=== PATIENT | female | born 1960 | race Caucasian/White ===

== ENCOUNTER 2017-03-12 15:57 | Inpatient (IN) | payer OTHER ==
[~2017-03-12] VITALS: Ht 175.3 cm; Wt 90.7 kg
[~2017-03-12 15:57] MED LIST: ACET-2869 PO; ASPI81CT89 PO; BEN10 PO; BENA10TA16 PO; CLON2TAB PO; DOCU-264 PO; FAMO20TA47 PO; FURO-570 PO; LACT1.4C PO; LEVO500T22 PO; MULT1CAP28 PO; PANT40EC28 PO; POTA8TER12 PO; SPIR25TA PO; SYN.1 PO
[2017-03-12 16:08] VITALS: BP 124/71
[2017-03-12] MEDS ORDERED: IPRATROPIUM 0.02% 0.5 MG/2.5 ML NEBU INH ONE (17:25)
[2017-03-12] MEDS ORDERED: ALBUTEROL 0.083% 2.5 MG/3 ML NEBU INH ONE (17:25)
[2017-03-12] MEDS ORDERED: MAG SULF 2000 MG/WATER PREMIX 50 ML IV ONE (17:25)
[2017-03-12] MEDS ORDERED: methylPREDNISolone SS 125 MG/2 ML VIAL IVP ONE (17:25)
--- NOTE | 2017-03-12 17:34 | NUR ---
Patient ambualted to bed 8. RN evaluating patient at bedside.
--- NOTE | 2017-03-12 17:44 | NUR ---
Breathing treatment administered by respiratory therapist at bedside.
--- NOTE | 2017-03-12 17:48 | NUR ---
X-Ray at bedside.
--- NOTE | 2017-03-12 17:54 | NUR ---
Patient being evaluated by Dr. Martinez at bedside.
[2017-03-12] MEDS ORDERED: FUROSEMIDE 40 MG/4 ML VIAL IVP ONE (18:00)
--- NOTE | 2017-03-12 18:05 | NUR ---
56F BIB FAMILY C/O DIFFICULTY BREATHING WITH COUGHING & WHEEZING X 6 DAYS WITH WHITE PHELEM AND FEVER. RR EVEN/UNLABORED, EQUAL RISE/FALL OF CHEST NOTED AT THIS TIME. LS DIMINISHED THOUGH LS. PATIENT ALSO C/O INTERMITTENT SUBSTERNAL CP AND UPPER BL BACK PAIN; PATIENT STATES THAT COUGHING MAKES THE PAIN OCCUR; +1 NONPITTING EDEMA TO BL ANKLES; PATIENT STATES SHE FEELS "HEAVIER"; DENIES N/V/D; SKIN IS PINK/WARM/DRY; AAOX4 WITH EVEN AND STEADY GAIT; VSS; PATIENT POSITIONED FOR COMFORT; HOB ELEVATED; BEDRAILS UP X2; BED DOWN. ER MD MADE AWARE OF PT STATUS.
--- NOTE | 2017-03-12 18:13 | NUR ---
EKG completed by EMT at bedside.
--- NOTE | 2017-03-12 18:14 | NUR ---
Dr. Martinez evaluating patient at bedside.
[2017-03-12] MEDS ORDERED: MORPHINE SULFATE 4 MG/ML SYR IVP ONE (18:25)
[2017-03-12] MEDS ORDERED: ASPIRIN 325 MG TAB PO ONE (18:25)
[2017-03-12 18:40] LABS: BASOPHILS # (AUTO) 0.1 K/uL (0.00-0.22); BASOPHILS % (AUTO) 0.8 % (0.0-2.0); EOSINOPHILS # (AUTO) 0.1 K/uL (0-0.4); EOSINOPHILS % (AUTO) 0.7 % (0.0-4.0); HEMATOCRIT 40.3 % (36-48); HEMOGLOBIN 12.9 g/dL (12.0-16.0); LYMPHOCYTES # (AUTO) 1.4 K/uL (2.5-16.5); LYMPHOCYTES % (AUTO) 16.1 % (20.5-51.1); MEAN CORPUSCULAR HEMOGLOBIN 27 pg (27-31); MEAN CORPUSCULAR HGB CONC 32 g/dL (33-37); MEAN CORPUSCULAR VOLUME 85 fL (80-94); MONOCYTES # (AUTO) 0.8 K/uL (0.8-1.0); MONOCYTES % (AUTO) 9.1 % (1.7-9.3); NEUTROPHILS # (AUTO) 6.3 K/uL (1.8-7.7); NEUTROPHILS % (AUTO) 73.3 % (42.2-75.2); PLATELET COUNT (AUTO) 243 K/uL (140-450); RED BLOOD CELL COUNT(AUTO) 4.73 MIL/uL (4.20-5.40); RED CELL DISTRIBUTION WIDTH 12.7 % (11.6-13.7); WHITE BLOOD COUNT (AUTO) 8.7 K/uL (4.8-10.8)
[2017-03-12 18:49] LABS: PARTIAL THROMBOPLASTIN TIME 28.5 secs (22-35.6); PROTHROMBIN TIME 10.5 secs (10.8-13.4)
[2017-03-12] MEDS ORDERED: SYN.1 PO (18:52)
[2017-03-12] MEDS ORDERED: DEXL60EC5 PO (18:52)
[2017-03-12] MEDS ORDERED: LINA145C PO (18:52)
[2017-03-12] MEDS ORDERED: ASPI81CT89 PO (18:52)
[2017-03-12] MEDS ORDERED: MULT1SGL58 PO (18:52)
[2017-03-12] MEDS ORDERED: OMEG300C PO (18:52)
[2017-03-12] MEDS ORDERED: BEN10 PO (18:52)
[2017-03-12] MEDS ORDERED: AMLO1CAP11 PO (18:52)
[2017-03-12] MEDS ORDERED: SPIR25TA PO (18:52)
[2017-03-12] MEDS ORDERED: CLON2TAB PO (18:52)
[2017-03-12 18:54] LABS: ANION GAP 11.5 (8-16); CARBON DIOXIDE 30.8 mmol/L (21-32); CREATININE 0.9 mg/dL (0.6-1.3); POTASSIUM 4.3 mmol/L (3.5-5.1)
[2017-03-12 19:00] LABS: ALBUMIN 3.9 g/dL (3.4-5.0); TOTAL BILIRUBIN 0.5 mg/dL (0.0-1.0); TOTAL PROTEIN, SERUM 7.9 g/dL (6.4-8.2)
--- NOTE | 2017-03-12 19:06 | NUR ---
Pt report given to Mansi Swain. Transfer of care at this time.
--- NOTE | 2017-03-12 19:13 | NUR ---
Pt w/c assisted to bathroom.
--- NOTE | 2017-03-12 19:19 | NUR ---
Pt returned to bed 8. Placed back onto cardiac cath lab radiology technologist, pulse oximetry and blood pressure monitoring. VSS.
--- NOTE | 2017-03-12 19:28 | NUR ---
Pt requesting pain medication. Dr. Montelongo made aware.
--- NOTE | 2017-03-12 19:30 | NUR ---
Dr. Montelongo evaluating patient at bedside.
[2017-03-12] MEDS ORDERED: MORPHINE SULFATE 2 MG/ML SYR IVP ONE (19:40)
[2017-03-12] MEDS ORDERED: PIPERACILLIN/TAZOBACTAM 3.375 GM in DEXTROSE 5% 50 ML IV ONE (19:45)
[2017-03-12] MEDS ORDERED: NITROGLYCERIN 0.4 MG TAB SL PRN (20:05)
[2017-03-12] MEDS ORDERED: HYDROcodone/APAP 7.5/325 MG 1 TAB PO PRN (20:05)
[2017-03-12] MEDS ORDERED: PIPERACILLIN/TAZOBACTAM 3.375 GM VIAL IV ONE (20:08)
[2017-03-12] MEDS ORDERED: NACL 0.9% 1,000 ML IV SCH (20:19)
[2017-03-12] MEDS ORDERED: ONDANSETRON 4 MG/2 ML VIAL IVP PRN (20:20)
--- NOTE | 2017-03-12 20:20 | NUR ---
Patient will be admitted to care of Dr. Cruz. Admited to TELE. Will go to room 120-A. Belongings list completed. Report to Aydee BACA.
--- NOTE | 2017-03-12 20:35 | NUR ---
RECEIVED FROM ER PER SHANIQUA AWAKE AND ALERT. ABLE TO VERBALIZE NEEDS WELL IN WELSH. DX. OF CHEST PAIN. COMPLAINTS OF COUGHING HARD , NAUSEA OCCASIONALLY, FEVER AND WHEEZING AT HOME. HX. ASTHMA. PT. CARE PLANS FOR THE NIGHT DISCUSSED WITH HER AND CALL LIGHT USE DISCUSSED WITH HER TOO. NO EDEMA . NO OPEN WOUND AND ABLE TO WALK INDEPENDENTLY PER PT.
[2017-03-12] MEDS ORDERED: DOCUSATE SODIUM 100 MG GELCAP PO SCH ×2 (21:00)
[2017-03-12 21:01] LABS: AMPHETAMINE, URINE NEG. ng/ml (NEG <=1000); BARBITURATE, URINE NEG. ng/ml (NEG <=200); BENZODIAZEPINE, URINE NEG. ng/mL (NEG <=200); CANNABINOID, URINE NEG. ng/mL (NEG <=50); COCAINE, URINE NEG. ng/mL (NEG <=300); OPIATE, URINE NEG. ng/mL (NEG <=2000); PHENCYCLIDINE SCREEN,URINE NEG. ng/mL (NEG <=25)
[2017-03-12 21:10] LABS: CHOL/HDL RATIO 4.4 (1-4.5); FREE T4 (FREE THYROXINE) 1.14 ng/dL (0.76-1.46); MAGNESIUM 2.1 mg/dL (1.8-2.4); PHOSPHORUS 4.1 mg/dL (2.5-4.9)
[2017-03-12 21:24] VITALS: BP 134/89
[2017-03-12] MEDS ORDERED: ZOLPIDEM 5 MG TAB PO PRN (21:30)
[2017-03-12] MEDS ORDERED: SPIRONOLACTONE 25 MG TAB PO PRN (21:40)
[2017-03-12] MEDS ORDERED: clonazePAM 0.5 MG TAB PO SCH (21:50)
--- NOTE | 2017-03-12 22:00 | NUR ---
PT. PROVIDED WITH DINNER /SNACK. WITH GOOD APPETITE. CALL LIGHT WITH IN REACH.
[2017-03-12] MEDS: MORPHINE SULFATE 2 MG/ML SYR IVP PRN (22:05)
[2017-03-12] MEDS: METOPROLOL 25 MG TAB PO SCH (22:06)
[2017-03-12] MEDS: DOCUSATE SODIUM 100 MG GELCAP PO SCH (22:06)
[2017-03-12] MEDS: ATORVASTATIN 20 MG TAB PO SCH (22:06)
[2017-03-12] MEDS: NACL 0.9% 1,000 ML IV SCH (22:11)
[2017-03-12] MEDS ORDERED: ALBUTEROL SULFATE/IPRATROPIU 3 ML SOL IH PRN (22:15)
--- NOTE | 2017-03-12 23:34 | NUR ---
STILL AWAKE AT THIS TIME AND TALKING ON THE PHONE WITH A FAMILY MEMBER. NEW IVF LINE INSERTED TO LEFT WRIST #22 BY CHARGE NURSE RT LAC INSERTED IN ER PER PT IS UNCOMFORTABLE AND PAINFUL. DISCONTINUED WITH TIP INTACT. TOLERATED WELL.
[2017-03-13] MEDS: guaiFENesin DM 200/20 MG-10 ML 10 ML UDC PO PRN ×3 (00:29→21:59)
[2017-03-13 00:43] VITALS: BP 110/92
--- NOTE | 2017-03-13 00:58 | NUR ---
PT. AWAKE AND ASSISTED TO RESTROOM BY TERMITE TECHNICIAN. SETTLED BACK IN BED AND BILATERAL SEQUENTIALS IN PLACE ORDERED.
--- NOTE | 2017-03-13 01:15 | NUR ---
STILL AWKAE AT THIS TIME. STATED THAT SHE GOT AWAKEN BY THE LAB. TECH. ABLE TO VERBALIZE SIMPLE NEEDS WELL. NO SOB. TELEMETRY MONITORING.
--- NOTE | 2017-03-13 03:19 | NUR ---
SLEEPING. NO RESTLESSNESS. TELEMETRY MONITORING. CALL LIGHT WITH IN REACH.
[2017-03-13 05:14] VITALS: BP 95/60
[2017-03-13] MEDS: LEVOTHYROXINE 0.1 MG TAB PO SCH (05:49)
[2017-03-13 05:58] LABS: BILIRUBIN,URINE NEGATIVE (NEGATIVE); BLOOD, URINE TRACE-I (NEGATIVE); COLOR,URINE YELLOW (YELLOW); LEUKOCYTE ESTERASE ,URINE TRACE (NEGATIVE); NITRITE, URINE NEGATIVE (NEGATIVE); PH,URINE 5.5 (5.0-9.0); PROTEIN,URINE NEGATIVE (NEGATIVE); UGLUCOSE NEGATIVE (NEGATIVE); UROBILINOGEN,URINE 0.2 EU/dL (0.2 - 1)
[2017-03-13 06:27] LABS: RBC,URINE 0-5 (RARE) /HPF (0-5); WBC,URINE 0-5 (RARE) /HPF (0-5)
[2017-03-13 06:35] LABS: SQUAMOUS EPITHELIAL CELL,UR 4-10 (MOD) /LPF (0-3 (FEW))
[2017-03-13 06:36] LABS: APPEARANCE,URINE SLIGHTLY HAZY (CLEAR); BACTERIA,URINE 0-2 (RARE) /HPF (None Seen)
--- NOTE | 2017-03-13 07:11 | NUR ---
ENDORSED TO THE NEXT RN FOR CONTINUITY OF CARE. AWAKE , ALERT AND ROM X 4. TELEMETRY MONITORING. MEDICATED WITH MORPHINE IVP X 1 THIS SHIFT. ABLE TO VERBALIZE NEEDS WELL.
--- NOTE | 2017-03-13 07:30 | NUR ---
RECEIVED REPORT FROM PM RN. ASSUMED CARE OF THE PT. PT AWAKE, ALERT AND ORIENTED X4. BREATHING IS CLEAR AND UNLABORED. NO SIGNS OF RESTLESSNESS, SOB, AND DISTRESS. IV IS PATENT. SKIN IS INTACT. PT STATED A PAIN OF 8/10 ON HER BACK AND WHEN SHE COUGHS. WILL MEDICATE. PT DENIES ANY OTHER DISCOMFORT. SAFETY MEASURES IN PLACE. BED ON LOW POSITION. CALL LIGHT WITHIN REACH. WILL CONTINUE TO MONITOR.
[2017-03-13 08:00] VITALS: BP 108/72
--- NOTE | 2017-03-13 08:09 | NUR ---
PATIENT HAS BEEN SCREENED AND CATEGORIZED MODERATE NUTRITION RISK. PATIENT WILL BE SEEN WITHIN 3-5 DAYS OF ADMISSION. 03/15/17-03/17/[address]
[2017-03-13] MEDS: BENAZEPRIL 20 MG TAB PO SCH (08:31)
[2017-03-13] MEDS: DICYCLOMINE 10 MG CAP PO SCH ×2 (08:31→20:17)
[2017-03-13] MEDS: DOCUSATE SODIUM 100 MG GELCAP PO SCH ×2 (08:33→20:13)
[2017-03-13] MEDS: PANTOPRAZOLE 40 MG INJ VIAL IVP SCH (08:34)
[2017-03-13] MEDS: MULTIVITAMIN 1 TAB PO SCH (08:34)
[2017-03-13] MEDS: ASPIRIN 81 MG TAB.CHEW PO SCH (08:34)
[2017-03-13] MEDS ORDERED: LISINOPRIL 5 MG TAB PO SCH (09:00)
[2017-03-13] MEDS ORDERED: clonazePAM 0.5 MG TAB PO SCH (09:00)
--- NOTE | 2017-03-13 09:02 | NUR ---
GIVEN DUE MEDS. PT TOLERATED IT WELL. NO SIGNS OF DISTRESS, SOB, OR RESTLESSNESS. SAFETY MEASURES IN PLACE. WILL CONTINUE TO MONITOR.
--- NOTE | 2017-03-13 09:40 | NUR ---
PT AMBULATED TO THE RESTROOM. PT DENIES ANY SOB, LIGHTHEADEDNESS, OR DISTRESS. ASSISTED PT BACK TO HER BED. PT DENIES ANY DISCOMFORT. SAFETY MEASURES IN PLACE. CALL LIGHT WITHIN REACH. BED ON LOW POSITION. WILL CONTINUE TO MONITOR.
[2017-03-13] MEDS: MORPHINE SULFATE 2 MG/ML SYR IVP PRN ×2 (09:49→17:24)
--- NOTE | 2017-03-13 09:49 | NUR ---
GIVEN PAIN MEDICATION. PT TOLERATED IT WELL. NO SIGNS OF DISTRESS, SOB, OR RESTLESSNESS. SAFETY MEASURES IN PLACE. WILL CONTINUE OT MONITOR.
[2017-03-13] MEDS: METOPROLOL 25 MG TAB PO SCH ×2 (10:29→20:16)
[2017-03-13] MEDS: amLODIPine 5 MG TAB PO SCH (10:29)
[2017-03-13] MEDS: ALBUTEROL SULFATE/IPRATROPIU 3 ML SOL IH SCH ×2 (11:50→19:19)
[2017-03-13 12:00] VITALS: BP 99/70
[2017-03-13] MEDS: ONDANSETRON 4 MG/2 ML VIAL IVP PRN (13:12)
--- NOTE | 2017-03-13 13:12 | NUR ---
PT C/O NAUSEA. PRN MEDICATION GIVEN. PT TOLERATED IT WELL. PT HAS NO SIGNS OF DISTRESS, RESTLESSNESS, OR SOB. SAFETY MEASURES IN PLACE. WILL CONTINUE TO MONITOR.
[2017-03-13 16:00] VITALS: BP 110/68
[2017-03-13] MEDS: NACL 0.9% 1,000 ML IV SCH (16:01)
--- NOTE | 2017-03-13 17:06 | NUR ---
PT C/O BURNING PAIN AT IV SITE ON LEFT WRIST, SITE APPEARS WNL, NO SWELLING OR LEAKING NOTED, NEW IV STARTED PER PT'S REQUEST TO RIGHT FA 20g, PT SALO WELL, IVF RESUMED, PT SITTING UP CONVERSING WITH FAMILY WITH A SMILE, RESP EVEN UNLABORED IN NAD, PT DENIES ANY IMMEDIATE NEEDS, CALL TEJADA WITHIN REACH, SIDE RAILS UP, WILL CONTINUE TO MONITOR.
--- NOTE | 2017-03-13 18:00 | NUR ---
PT IN BED SITTING COMFORTABLY. PT DENIES PAIN OR DISCOMFORT. SAFETY MEASURES IN PLACED. WILL CONTINUE TO MONITOR.
--- NOTE | 2017-03-13 19:19 | NUR ---
REPORT GIVEN TO PM NURSE RAMESH. PT IN STABLE CONDITION.
--- NOTE | 2017-03-13 19:20 | NUR ---
RECEIVED REPORT FROM DAY RN FOR CONTINUITY OF CARE. PATIENT IS ALERT AND ORIENTED X4, DISCUSSED PLAN OF CARE WITH PATIENT. SHIFT ASSESSMENT COMPLETED, VITAL SIGNS STABLE. NO RESPIRATORY DISTRESS NOTED ON 2L NC, PATIENT HAS EXPIRATORY WHEEZING NOTED. PATIENT DENIES PAIN. IV TO RT FA PATENT AND INFUSING FLUIDS WELL. SAFETY PRECAUTIONS ENFORCED, CALL LIGHT WITHIN REACH. WILL CONTINUE TO MONITOR.
[2017-03-13 20:00] VITALS: BP 98/62
[2017-03-13] MEDS: ATORVASTATIN 20 MG TAB PO SCH (20:14)
--- NOTE | 2017-03-13 20:17 | NUR ---
DUE MEDICATIONS ADMINISTERED, TOLERATED WELL AND VERBALIZED UNDERSTANDING OF USE. PATIENT RESTING IN BED NO DISTRESS OR DISCOMFORT NOTED. CALL LIGHT WITHIN REACH.
[2017-03-13] MEDS: clonazePAM 0.5 MG TAB PO PRN (22:06)
--- NOTE | 2017-03-13 22:06 | NUR ---
PATIENT C/O ANXIETY, VITAL SIGNS STABLE. MEDICATED PER MD ORDER. CALL LIGHT WITHIN REACH, WILL CONTINUE TO MONITOR.
--- NOTE | 2017-03-13 23:50 | NUR ---
VITAL SIGNS STABLE, RT LISSY IN WITH PATIENT FOR BREATHING TX, RECOMMENDED SOLUMEDROL TREATMENT. DR. JACKSON IN TO SEE PATIENT.
[2017-03-14] VITALS: BP 108/71
[2017-03-14] MEDS ORDERED: LEVOFLOXACIN 750 MG/D5W PREMIX 150 ML IV SCH (00:20)
--- NOTE | 2017-03-14 01:03 | NUR ---
0010 SPUTUM SAMPLE UPTAINED AND TAKEN TO THE LAB.
--- NOTE | 2017-03-14 01:05 | NUR ---
0005 INSTRUCTED IS TO PT. PT DID 10 BREATHS AT 1500CC
[2017-03-14] MEDS: MORPHINE SULFATE 2 MG/ML SYR IVP PRN ×3 (01:27→18:04)
--- NOTE | 2017-03-14 01:27 | NUR ---
PATIENT C/O BACK PAIN, MEDICATED PER MD ORDER. VITAL SIGNS STABLE. CALL LIGHT WITHIN REACH, WILL CONTINUE TO MONITOR.
[2017-03-14 04:00] VITALS: BP 102/65
--- NOTE | 2017-03-14 04:11 | NUR ---
VITAL SIGNS STABLE, PATIENT RESTING IN BED NO DISTRESS OR DISCOMFORT NOTED. CALL LIGHT WITHIN REACH.
[2017-03-14] MEDS ORDERED: CLINDAMYCIN 600 MG/4 ML VIAL ONE (04:37)
[2017-03-14] MEDS ORDERED: CLINDAMYCIN 600 MG in DEXTROSE 5% 50 ML IV SCH (05:00)
[2017-03-14 05:40] LABS: BASOPHILS # (AUTO) 0.2 K/uL (0.00-0.22); BASOPHILS % (AUTO) 1.6 % (0.0-2.0); EOSINOPHILS # (AUTO) 0.1 K/uL (0-0.4); EOSINOPHILS % (AUTO) 1.4 % (0.0-4.0); HEMATOCRIT 34.6 % (36-48); HEMOGLOBIN 11.5 g/dL (12.0-16.0); LYMPHOCYTES # (AUTO) 1.6 K/uL (2.5-16.5); LYMPHOCYTES % (AUTO) 16.3 % (20.5-51.1); MEAN CORPUSCULAR HEMOGLOBIN 28 pg (27-31); MEAN CORPUSCULAR HGB CONC 33 g/dL (33-37); MEAN CORPUSCULAR VOLUME 85 fL (80-94); MONOCYTES # (AUTO) 0.8 K/uL (0.8-1.0); MONOCYTES % (AUTO) 8.3 % (1.7-9.3); NEUTROPHILS # (AUTO) 6.9 K/uL (1.8-7.7); NEUTROPHILS % (AUTO) 72.4 % (42.2-75.2); PLATELET COUNT (AUTO) 276 K/uL (140-450); RED BLOOD CELL COUNT(AUTO) 4.05 MIL/uL (4.20-5.40); RED CELL DISTRIBUTION WIDTH 12.7 % (11.6-13.7); WHITE BLOOD COUNT (AUTO) 9.6 K/uL (4.8-10.8)
[2017-03-14] MEDS: LEVOTHYROXINE 0.1 MG TAB PO SCH (06:14)
--- NOTE | 2017-03-14 06:20 | NUR ---
DR. HALLMAN IN TO SEE PATIENT.
[2017-03-14 06:31] LABS: ANION GAP 9.5 (8-16); CALCIUM 8.5 mg/dL (8.5-10.1); CARBON DIOXIDE 31.5 mmol/L (21-32); CREATININE 0.9 mg/dL (0.6-1.3)
[2017-03-14 06:37] LABS: MAGNESIUM 2.1 mg/dL (1.8-2.4); PHOSPHORUS 4.4 mg/dL (2.5-4.9)
[2017-03-14] MEDS: ALBUTEROL SULFATE/IPRATROPIU 3 ML SOL IH SCH ×3 (06:39→18:59)
--- NOTE | 2017-03-14 07:16 | NUR ---
ENDORSED PATIENT TO DAY RN AT BEDSIDE FOR CONTINUITY OF CARE, PATIENT IS IN STABLE CONDITION.
--- NOTE | 2017-03-14 07:30 | NUR ---
RECEIVED REPORT FROM PM RN FOR CONTINUITY OF CARE. PT AWAKE, ALERT AND ORIENTED X4. NO SIGNS OF RESTLESSNESS, SOB, AND DISTRESS. VITAL SIGNS ARE STABLE. IV ON THE R FA IS PATENT. SKIN IS INTACT. PT STATED A PAIN OF 7/10, WILL MEDICATE. PLAN OF CARE DISCUSSED WITH THE PT, PT VERBALIZED UNDERSTANDING. PT DENIES ANY OTHER DISCOMFORT. SAFETY MEASURES IN PLACE. BED ON LOW POSITION. CALL LIGHT WITHIN REACH. WILL CONTINUE TO MONITOR.
[2017-03-14 08:00] VITALS: BP 109/76
[2017-03-14] MEDS: PANTOPRAZOLE 40 MG INJ VIAL IVP SCH (08:31)
[2017-03-14] MEDS: ASPIRIN 81 MG TAB.CHEW PO SCH (08:31)
[2017-03-14] MEDS: MULTIVITAMIN 1 TAB PO SCH (08:32)
[2017-03-14] MEDS: DOCUSATE SODIUM 100 MG GELCAP PO SCH ×2 (08:33→21:51)
[2017-03-14] MEDS: DICYCLOMINE 10 MG CAP PO SCH ×2 (08:33→21:51)
[2017-03-14] MEDS: ONDANSETRON 4 MG/2 ML VIAL IVP PRN (08:36)
[2017-03-14] MEDS ORDERED: AZITHROMYCIN 250 MG TAB PO SCH (09:00)
[2017-03-14] MEDS: METOPROLOL 25 MG TAB PO SCH ×2 (09:00→21:00)
[2017-03-14] MEDS: amLODIPine 5 MG TAB PO SCH (09:00)
[2017-03-14] MEDS: BENAZEPRIL 20 MG TAB PO SCH (09:00)
--- NOTE | 2017-03-14 10:30 | NUR ---
PT IS SLEEPING. NO SIGN OF DISTRESS, SOB, OR RESTLESSNESS. VS STABLE. SAFETY MEASURES IN PLACED. WILL CONTINUE TO MONITOR.
[2017-03-14 12:00] VITALS: BP 91/60
[2017-03-14] MEDS ORDERED: methylPREDNISolone SS 125 MG/2 ML VIAL IVP SCH (12:00)
[2017-03-14] MEDS: NACL 0.9% 1,000 ML IV SCH (12:01)
--- NOTE | 2017-03-14 12:52 | NUR ---
WAS GOING TO GIVE PT HER BREATHING TX BUT SHE REFUSED SHE JUST GOT HER LUNCH AND NO SIGNS OF DISTRESS WERE NOTED AT THIS TIME, PT WILL CALL WHEN SHE NEEDS ONE
[2017-03-14] MEDS: clonazePAM 0.5 MG TAB PO PRN ×2 (12:59→22:08)
--- NOTE | 2017-03-14 13:00 | NUR ---
PT C/O ANXIETY. PT GIVEN CLONAZEPAM PER MD ORDER. VS ARE STABLE, BP IS 106/62. PT TOLERATED IT WELL. PT DENIES ANY DISCOMFORT. SAFETY MEASURES IN PLACED. WILL CONTINUE TO MONITOR.
[2017-03-14 16:00] VITALS: BP 100/62
--- NOTE | 2017-03-14 16:04 | NUR ---
DR MAGDALENO AND PT FAMILY MEMBERS AT BEDSIDE.
[2017-03-14] MEDS: guaiFENesin DM 200/20 MG-10 ML 10 ML UDC PO PRN (16:09)
--- NOTE | 2017-03-14 16:09 | NUR ---
PT C/O PERSISTENT COUGH. ADMINISTER PRN MEDICATIONS PER MD ORDER. VS STABLE. PT TOLERATED IT WELL. SAFETY MEASURES IN PLACED. FAMILY AT BEDSIDE. CALL LIGHT WITHIN REACH. BEAD ON LOW POSITION. WILL CONTINUE TO MONITOR.
--- NOTE | 2017-03-14 18:04 | NUR ---
PT REPORTED A PAIN OF 7/10 ON HER BACK AND WHEN SHE COUGHS. MEDICATED PT WITH MORPHINE PER MD ORDER. PT TOLERATED IT WELL. VS STABLE. PT DENIES DISCOMFORT. NO SIGNS OF DISTRESS, RESTLESSNESS, OR SOB. SAFETY MEASURES IN PLACED. CALL LIGHT WITHIN REACH. WILL CONTINUE TO MONITOR.
--- NOTE | 2017-03-14 19:30 | NUR ---
RECEIVED REPORT FROM DAY RN AT BEDSIDE, PATIENT IS AAOX4 ON O2 2L VIA NC. NO SOB OR SIGN OF DISTRESS NOTED AT THIS TIME, INTERMITTENT COUGH WITH LITTLE TO NO SPUTUM PRODUCTION NOTED. IV TO RIGHT FA PATENT AND INTACT, SKIN INTACT. PATIENT DENIES PAIN AT THIS TIME, DISCUSSED PLAN OF CARE WITH PATIENT, PT VERBALIZED UNDERSTANDING, CALL LIGHT WITHIN REACH. SAFETY MEASURES CHECKED, WILL CONTINUE TO MONITOR PATIENT.
--- NOTE | 2017-03-14 19:31 | NUR ---
REPORT GIVEN TO PM NURSE. PT IN STABLE CONDITION.
[2017-03-14 20:00] VITALS: BP 114/69
[2017-03-14] MEDS ORDERED: IBUPROFEN 400 MG TAB PO PRN (20:50)
--- NOTE | 2017-03-14 20:54 | NUR ---
PT READY FOR CPAP. CALLED RT AND INFORMED THEM. PT SATURATING AT 90 ON 1L NC. PT WITH NO SIGNS OF DISTRESS, BED IN LOW POSITION, CALL LIGHT WITHIN REACH. WILL CONTINUE TO MONITOR. Addendum: 03/14/17 at 2108 by Chrissy Donohue RN WRONG PATIENT. VOID NOTE
--- NOTE | 2017-03-14 21:45 | NUR ---
PATIENT STATING PAIN IN LOWER BACK, ORDERED MOTRIN, PATIENT STATED MOTRIN DOES NOT WORK FOR HER AND NORCO MAKES HER CONSTIPATED, OFFERED PATIENT TO GET HEATING PAD, PT REFUSED, OFFERED PT TO SPEAK TO MD TO SEE WHAT HE COULD DO FOR HER. MD JACKSON PAGED AND SPOKE TO PATIENT AT THE BEDSIDE. MD TO ORDER TORADOL FOR PAIN, WILL F/U WITH ORDERS.
[2017-03-14] MEDS: methylPREDNISolone SS 125 MG/2 ML VIAL IVP SCH (21:50)
[2017-03-14] MEDS: ATORVASTATIN 20 MG TAB PO SCH (21:55)
[2017-03-14] MEDS ORDERED: KETOROLAC 15 MG/ML VIAL IVP PRN (21:55)
--- NOTE | 2017-03-14 22:00 | NUR ---
PM MEDS GIVEN. PT REFUSED LOPRESSOR. PT TOLERATED MEDS WELL, PT STABLE WITHOUT ANY SIGNS OF DISTRESS. BED IN LOW POSITION, CALL LIGHT WITHIN REACH. WILL CONTINUE TO MONITOR.
[2017-03-15] VITALS: BP 117/79
--- NOTE | 2017-03-15 | NUR ---
VITAL SIGNS STABLE, NO SOB OR SIGN OF DISTRESS, CALL LIGHT WITHIN REACH. WILL CONTINUE TO MONITOR.
[2017-03-15] MEDS: MORPHINE SULFATE 2 MG/ML SYR IVP PRN ×3 (00:11→14:56)
--- NOTE | 2017-03-15 02:30 | NUR ---
PT SLEEPING, NO SOB OR SIGN OF DISTRESS AT THIS TIME, CALL LIGHT WITHIN REACH. WILL CONTINUE TO MONITOR
[2017-03-15 04:00] VITALS: BP 106/70
--- NOTE | 2017-03-15 04:00 | NUR ---
VITAL SIGNS STABLE, NO SOB OR SIGN OF DISTRESS, CALL LIGHT WITHIN REACH. WILL CONTINUE TO MONITOR
[2017-03-15] MEDS: methylPREDNISolone SS 125 MG/2 ML VIAL IVP SCH ×2 (04:26→12:08)
[2017-03-15 06:16] LABS: BASOPHILS % (AUTO) 0.4 % (0.0-2.0); EOSINOPHILS # (AUTO) 0.2 K/uL (0-0.4); EOSINOPHILS % (AUTO) 2.3 % (0.0-4.0); HEMATOCRIT 35.1 % (36-48); HEMOGLOBIN 11.7 g/dL (12.0-16.0); LYMPHOCYTES # (AUTO) 0.8 K/uL (2.5-16.5); LYMPHOCYTES % (AUTO) 8.1 % (20.5-51.1); MEAN CORPUSCULAR HEMOGLOBIN 28 pg (27-31); MEAN CORPUSCULAR HGB CONC 33 g/dL (33-37); MEAN CORPUSCULAR VOLUME 85 fL (80-94); MONOCYTES # (AUTO) 0.2 K/uL (0.8-1.0); NEUTROPHILS # (AUTO) 8.6 K/uL (1.8-7.7); NEUTROPHILS % (AUTO) 87.2 % (42.2-75.2); PLATELET COUNT (AUTO) 333 K/uL (140-450); RED BLOOD CELL COUNT(AUTO) 4.15 MIL/uL (4.20-5.40); RED CELL DISTRIBUTION WIDTH 12.9 % (11.6-13.7); WHITE BLOOD COUNT (AUTO) 9.8 K/uL (4.8-10.8)
[2017-03-15] MEDS: LEVOTHYROXINE 0.1 MG TAB PO SCH (06:18)
[2017-03-15 06:32] LABS: ANION GAP 13.1 (8-16); CALCIUM 8.8 mg/dL (8.5-10.1); CARBON DIOXIDE 28.7 mmol/L (21-32); CREATININE 0.9 mg/dL (0.6-1.3); POTASSIUM 4.8 mmol/L (3.5-5.1)
[2017-03-15] MEDS: ALBUTEROL SULFATE/IPRATROPIU 3 ML SOL IH SCH ×3 (06:34→19:10)
[2017-03-15 06:36] LABS: MAGNESIUM 2.1 mg/dL (1.8-2.4); PHOSPHORUS 4.4 mg/dL (2.5-4.9)
[2017-03-15] MEDS: BUDESONIDE 0.5 MG/2 ML NEBU INH SCH ×2 (06:45→19:30)
--- NOTE | 2017-03-15 07:23 | NUR ---
ENDORSED PATIENT TO DAY RN AT BEDSIDE, PATIENT IN STABLE CONDITION
--- NOTE | 2017-03-15 07:23 | NUR ---
RECEIVED REPORT FROM NIGHT NURSE, PT IS AAOX4, PT IS ON O2 2L VIA NC, IV TO R FA 20G, INFUSING WELL, PATENT AND INTACT, SKIN IS WARM TO TOUCH, DRY AND INTACT, INITIAL ASSESSMENT COMPLETED, REVIEWED PLAN OF CARE WITH PT, ALL SAFETY PRECAUTIONS MET, CALL LIGHT WITHIN REACH, WILL CONTINUE TO MONITOR.
[2017-03-15 08:00] VITALS: BP 117/66
[2017-03-15] MEDS: NACL 0.9% 1,000 ML IV SCH (08:01)
[2017-03-15] MEDS ORDERED: KETOROLAC 30 MG/ML VIAL IVP PRN (08:10)
[2017-03-15] MEDS ORDERED: APAP/BUTAL/CAFF 325/50/40 MG 1 TAB PO PRN (08:20)
[2017-03-15] MEDS: AZITHROMYCIN 250 MG TAB PO SCH ×2 (08:27→20:24)
[2017-03-15] MEDS: DICYCLOMINE 10 MG CAP PO SCH ×2 (08:27→20:23)
[2017-03-15] MEDS: ASPIRIN 81 MG TAB.CHEW PO SCH (08:28)
[2017-03-15] MEDS: DOCUSATE SODIUM 100 MG GELCAP PO SCH ×2 (08:28→20:24)
[2017-03-15] MEDS: PANTOPRAZOLE 40 MG INJ VIAL IVP SCH (08:28)
[2017-03-15] MEDS: MULTIVITAMIN 1 TAB PO SCH (08:28)
[2017-03-15] MEDS ORDERED: BISACODYL 5 MG TABEC PO PRN (08:30)
[2017-03-15] MEDS: ENOXAPARIN 40 MG/0.4 ML SYR SUBQ SCH (08:32)
[2017-03-15] MEDS: ONDANSETRON 4 MG/2 ML VIAL IVP PRN ×2 (08:37→21:08)
--- NOTE | 2017-03-15 08:39 | NUR ---
DUE MEDICATION GIVEN, PT TOLERATED WELL, PT C/O NAUSEA AND GERMAIN 8/10, MEDICATED PER MD ORDERS. ALL NEEDS MET. CALL LIGHT WITHIN REACH. WILL CONTINUE TO MONITOR.
[2017-03-15] MEDS: BENAZEPRIL 20 MG TAB PO SCH (09:00)
[2017-03-15] MEDS: METOPROLOL 25 MG TAB PO SCH ×2 (09:00→21:00)
[2017-03-15] MEDS: amLODIPine 5 MG TAB PO SCH (09:00)
--- NOTE | 2017-03-15 10:57 | NUR ---
ASSESSED PT WITHOUT OXYGEN, PULSE OX 94%, INFORMED PT THAT SHE DOES NOT NEED OXYGEN, PT STATES SHE NEEDS THE OXYGEN FOR COMFORT. INFORMED PACO COLLEGE SCOUTING COORDINATOR AND CHARGE NURSE.
--- NOTE | 2017-03-15 11:00 | NUR ---
PT IS UNHAPPY STATES SHE WANTS TO KEEP OXYGEN ON FOR HER COMFORT, PT O2 SAT 94% ON ROOM AIR, EDUCATED PT ON USAGE, NEEDS AND WEANING OF OXYGEN BEFORE DISCHARGE. PT REFUSES REMOVAL OF OXYGEN AND ASK TO SPEAK TO CHARGE NURSE.
--- NOTE | 2017-03-15 11:25 | NUR ---
ENDORSED PLAN OF CARE TO ASHISH BACA FOR CONTINUITY OF CARE.
--- NOTE | 2017-03-15 11:27 | NUR ---
RECEIVED REPORT FROM LO ROBISON. PT RESTING IN BED. AAOX4. NO S/S OF ACUTE DISTRESS. PT DENIES PAIN. PT STATES SHE HAS A COUGH AND WOULD LIKE COUGH MEDICINE. WILL MEDICATE ORDERED. IV SITE PATENT AND INTACT. PT ON O2 2L NC. CALL LIGHT WITHIN REACH. SAFETY MEASURES ENSURED. WILL CONTINUE TO MONITOR.
[2017-03-15] MEDS: guaiFENesin DM 200/20 MG-10 ML 10 ML UDC PO PRN (11:51)
[2017-03-15 11:54] VITALS: BP 103/67
--- NOTE | 2017-03-15 12:23 | NUR ---
PT STATES SHE IS " STILL WORKED UP" AND DOESN'T WANT THE OXYGEN TO BE TURNED DOWN AT THIS TIME. EXPLAINED TO PT THE NEED TO WEAN HER OFF O2, PT VERBALIZED UNDERSTANDING BUT STILL REFUSED AT THIS TIME. NOTIFIED PT THAT WE WOULD TRY AFTER HER BREATHING TREATMENT. PT IN AGREEMENT.
--- NOTE | 2017-03-15 15:02 | NUR ---
PT STATES PAIN IS 8/10 IN HER BACK. MEDICATED ORDERED. NO S/S OF ACUTE DISTRESS. WILL CONTINUE TO MONITOR.
[2017-03-15 15:58] VITALS: BP 106/60
--- NOTE | 2017-03-15 17:21 | NUR ---
PATIENT WALKING AROUND PUSHING THE IV POLE, NO OXYGEN ATTACHMENT WITH HER DAUGHTER, NO COMPLAINTS WHILE WALKING, NO S/S OF DISTRESS.
[2017-03-15 17:33] LABS: APPEARANCE,URINE CLEAR (CLEAR); BILIRUBIN,URINE NEGATIVE (NEGATIVE); BLOOD, URINE NEGATIVE (NEGATIVE); COLOR,URINE YELLOW (YELLOW); LEUKOCYTE ESTERASE ,URINE NEGATIVE (NEGATIVE); NITRITE, URINE NEGATIVE (NEGATIVE); PROTEIN,URINE NEGATIVE (NEGATIVE); UGLUCOSE NEGATIVE (NEGATIVE); UROBILINOGEN,URINE 0.2 EU/dL (0.2 - 1)
--- NOTE | 2017-03-15 19:10 | NUR ---
PT REFUSED HHN TX, SHE SAID THAT SHE WILL CALL IF NEEDED, BS RE NORMAL, SAT 96%
--- NOTE | 2017-03-15 19:19 | NUR ---
REPORT GIVEN TO NIGHT NURSE, PT REMAINS STABLE
--- NOTE | 2017-03-15 19:30 | NUR ---
RECEIVED REPORT FROM DAY NURSE AT PATIENT BEDSIDE. PT IS AWAKE, A&O X4. PATIENT IS STABLE. VITAL SIGNS WNL. IV ON THE RIGHT FOREARM IS ASYMPTOMATIC. SKIN IS INTACT. PLAN OF CARE DISCUSSED WITH THE PT, PT VERBALIZED UNDERSTANDING. BED IN LOW POSITION, CALL LIGHT WITHIN REACH. WILL CONTINUE TO MONITOR. Addendum: 03/16/17 at 0501 by Chrissy Donohue RN PT IS ON 1L O2 VIA NC.
[2017-03-15 20:00] VITALS: BP 106/71
[2017-03-15] MEDS: ATORVASTATIN 20 MG TAB PO SCH (20:22)
[2017-03-15] MEDS: methylPREDNISolone SS 40 MG/ML VIAL IVP SCH (20:22)
[2017-03-15] MEDS: clonazePAM 0.5 MG TAB PO PRN (20:27)
--- NOTE | 2017-03-15 20:30 | NUR ---
PM MEDS GIVEN TO PATIENT. PATIENT TOLERATED WELL. PATIENT IS STABLE, COMFORTABLE, WITHOUT SIGNS OF DISTRESS. BED IS IN LOW POSITION, CALL LIGHT WITHIN REACH. WILL CONTINUE TO MONITOR.
--- NOTE | 2017-03-15 20:59 | NUR ---
CK PT AGAIN BEFORE SHES GOING TO SLEEP AND SHE REFUSED, SHE WANTS TO SLEEP AND RELAX, AND THE STEROID WILL GET IN THE IV
--- NOTE | 2017-03-15 21:13 | NUR ---
PATIENT C/O NAUSEA, ZOFRAN GIVEN PER MD ORDER. PATIENT TOLERATED WELL. PATIENT STABLE, BED IN LOW POSITION, CALL LIGHT WITHIN REACH. WILL CONTINUE TO MONITOR.
--- NOTE | 2017-03-15 23:30 | NUR ---
PATIENT IS RESTING, STABLE. NO SOB OR SIGNS OF DISTRESS NOTED. BED IN LOW POSITION, CALL LIGHT WITHIN REACH. WILL CONTINUE TO MONITOR.
[2017-03-16] VITALS: BP 111/75
[2017-03-16] MEDS: MORPHINE SULFATE 2 MG/ML SYR IVP PRN ×3 (00:37→15:16)
--- NOTE | 2017-03-16 00:40 | NUR ---
PATIENT STATED SHE HAD 8/10 PAIN ON HER BACK. MEDICATED WITH MORPHINE PER MD ORDER. NO SIGNS OF DISTRESS OR SOB NOTED. WILL CONTINUE TO MONITOR. BED IN LOW POSITION, CALL LIGHT WITHIN REACH.
--- NOTE | 2017-03-16 03:11 | NUR ---
RECEIVED REPORT FROM DAY NURSE AT PATIENT BEDSIDE. PT IS AWAKE, A&O X4. PATIENT IS STABLE. VITAL SIGNS WNL. IV ON THE RIGHT FOREARM IS ASYMPTOMATIC. SKIN IS INTACT. PLAN OF CARE DISCUSSED WITH THE PT, PT VERBALIZED UNDERSTANDING. BED IN LOW POSITION, CALL LIGHT WITHIN REACH. WILL CONTINUE TO MONITOR. Addendum: 03/16/17 at 0316 by Chrissy Donohue RN WRONG TIME. DISREGARD NOTE.
[2017-03-16] MEDS: guaiFENesin DM 200/20 MG-10 ML 10 ML UDC PO PRN ×2 (03:52→12:17)
[2017-03-16 04:00] VITALS: BP 110/62
[2017-03-16] MEDS: NACL 0.9% 1,000 ML IV SCH (04:03)
--- NOTE | 2017-03-16 04:56 | NUR ---
PATIENT RESTING. GENERAL RO[address] PRODUCTION MANAGER ROBYN BLOOD. ADVISED PT TO USE CALL LIGHT IF NEEDING SOMETHING, SHE VERBALIZED UNDERSTANDING. PATIENT IS IN STABLE CONDITION. NO SIGNS OF DISTRESS OR SOB NOTED. BED IN LOW POSITION, CALL LIGHT WITHIN REACH. WILL CONTINUE TO MONITOR.
[2017-03-16] MEDS: methylPREDNISolone SS 40 MG/ML VIAL IVP SCH ×2 (05:32→13:13)
[2017-03-16] MEDS: LEVOTHYROXINE 0.1 MG TAB PO SCH (05:33)
--- NOTE | 2017-03-16 05:36 | NUR ---
GAVE PT MEDS. TOLERATED WELL. PT WENT BACK TO SLEEP. PT IS NOT SOB, THERE ARE NO SIGNS OF DISTRESS. BED IS IN LOW POSITION, CALL LIGHT WITHIN REACH. WILL CONTINUE TO MONITOR.
[2017-03-16 06:06] LABS: BASOPHILS # (AUTO) 0.1 K/uL (0.00-0.22); BASOPHILS % (AUTO) 0.7 % (0.0-2.0); EOSINOPHILS # (AUTO) 0.1 K/uL (0-0.4); EOSINOPHILS % (AUTO) 0.9 % (0.0-4.0); HEMATOCRIT 34.9 % (36-48); HEMOGLOBIN 11.2 g/dL (12.0-16.0); LYMPHOCYTES # (AUTO) 0.8 K/uL (2.5-16.5); LYMPHOCYTES % (AUTO) 5.6 % (20.5-51.1); MEAN CORPUSCULAR HEMOGLOBIN 28 pg (27-31); MEAN CORPUSCULAR HGB CONC 32 g/dL (33-37); MEAN CORPUSCULAR VOLUME 87 fL (80-94); MONOCYTES # (AUTO) 0.7 K/uL (0.8-1.0); NEUTROPHILS # (AUTO) 12.8 K/uL (1.8-7.7); NEUTROPHILS % (AUTO) 87.8 % (42.2-75.2); PLATELET COUNT (AUTO) 338 K/uL (140-450); RED BLOOD CELL COUNT(AUTO) 4.02 MIL/uL (4.20-5.40); RED CELL DISTRIBUTION WIDTH 12.8 % (11.6-13.7)
[2017-03-16 06:30] LABS: ANION GAP 11.6 (8-16); CALCIUM 8.5 mg/dL (8.5-10.1); CARBON DIOXIDE 27.6 mmol/L (21-32); CREATININE 0.9 mg/dL (0.6-1.3); POTASSIUM 4.2 mmol/L (3.5-5.1)
[2017-03-16 06:33] LABS: MAGNESIUM 2.2 mg/dL (1.8-2.4); PHOSPHORUS 3.8 mg/dL (2.5-4.9)
[2017-03-16] MEDS: ALBUTEROL SULFATE/IPRATROPIU 3 ML SOL IH SCH ×2 (07:01→11:40)
[2017-03-16] MEDS: BUDESONIDE 0.5 MG/2 ML NEBU INH SCH (07:02)
--- NOTE | 2017-03-16 07:15 | NUR ---
ASSUMED CONTINUITY OF CARE. NO SIGNS AND SYMPTOMS OF ACUTE DISTRESS NOTED. INITIAL ASSESSMENT DONE. KEEP COMFORTABLE ON BED. EXPLAINED DIAGNOSIS, PLAN OF CARE, PAIN MANAGEMENT TEACHING, BREATHING TREATMENT, USE OF CALL LIGHT/BED/TV/BEDSIDE COMMODE. VERBALIZED UNDERSTANDING. BEDSIDE COMMODE PROVIDED. CALL LIGHT WITHIN REACH.
--- NOTE | 2017-03-16 07:22 | NUR ---
ENDORSED PATIENT TO DAY HAND SPRAYER AT BEDSIDE, PATIENT IN STABLE CONDITION
[2017-03-16 07:27] LABS: WHITE BLOOD COUNT (AUTO) 14.5 K/uL (4.8-10.8)
--- NOTE | 2017-03-16 08:00 | NUR ---
Patient's Plan of Care was discussed and reviewed with WOOL FLEECE SORTER: JANETTE KELLY
[2017-03-16 08:01] VITALS: BP 111/70
[2017-03-16] MEDS: ASPIRIN 81 MG TAB.CHEW PO SCH (08:50)
[2017-03-16] MEDS: MULTIVITAMIN 1 TAB PO SCH (08:50)
[2017-03-16] MEDS: DOCUSATE SODIUM 100 MG GELCAP PO SCH (08:50)
[2017-03-16] MEDS: AZITHROMYCIN 250 MG TAB PO SCH (08:50)
[2017-03-16] MEDS: DICYCLOMINE 10 MG CAP PO SCH (08:50)
[2017-03-16] MEDS: BENAZEPRIL 20 MG TAB PO SCH (08:56)
[2017-03-16] MEDS: ENOXAPARIN 40 MG/0.4 ML SYR SUBQ SCH (08:56)
[2017-03-16] MEDS: amLODIPine 5 MG TAB PO SCH (08:56)
[2017-03-16] MEDS: METOPROLOL 25 MG TAB PO SCH (08:56)
[2017-03-16] MEDS: PANTOPRAZOLE 40 MG INJ VIAL IVP SCH (08:57)
[2017-03-16] MEDS ORDERED: BISA5TAB79 PO (10:27)
[2017-03-16] MEDS ORDERED: ROBDM PO ×2 (10:27→14:48)
[2017-03-16] MEDS ORDERED: PUL.5N INH (10:27)
[2017-03-16] MEDS ORDERED: AZIT250T8 PO (10:27)
[2017-03-16] MEDS ORDERED: IPRA3AMP IH ×2 (10:27→14:55)
--- NOTE | 2017-03-16 10:59 | NUR ---
03/16/17 RD INITIAL ASSESSMENT COMPLETED PLEASE REFER TO NUTRITION ASSESSMENT UNDER CARE ACTIVITY FOR ESTIMATED NUTRITIONAL NEEDS. 1. CONTINUE CARDIAC DIET 2. PROVIDE NUTRITION THERAPY EDUCATION NEEDED 3. RD TO FOLLOW-UP 3-5 DAYS, MODERATE RISK JENN ESPINOZA RD
--- NOTE | 2017-03-16 11:00 | NUR ---
WENT TO BATHROOM WITHOUT ASSISTANCE. TOLERATED WELL. NO SOB, NOTED.
--- NOTE | 2017-03-16 11:37 | NUR ---
RT SAGASTUME CAME FOR PT. BREATHING TREATMENT.
[2017-03-16] MEDS: clonazePAM 0.5 MG TAB PO PRN (11:45)
[2017-03-16 12:00] VITALS: BP 105/59
[2017-03-16] MEDS ORDERED: IBUP-2213 PO (12:07)
--- NOTE | 2017-03-16 13:35 | NUR ---
DR. MAGDALENO CAME, SEEN PT. AND CHECKED PT. CHART. DR. MAGDALENO SPOKE TO DR. HALLMAN.
[2017-03-16] MEDS ORDERED: PRED10TA5 PO (14:17)
[2017-03-16] MEDS ORDERED: ALBU0.0912 IH (14:48)
[2017-03-16] MEDS ORDERED: BUDE10.2 IH (14:50)
[2017-03-16] MEDS ORDERED: BUDE0.25 NEB (14:55)
[2017-03-16 15:05] VITALS: BP 115/75
--- NOTE | 2017-03-16 15:23 | NUR ---
DR. HALLMAN WENT INSIDE PT. ROOM AND SPOKE TO PT. REGARDING D/C.
[2017-03-16 16:00] VITALS: BP 119/72
--- NOTE | 2017-03-16 16:19 | NUR ---
CM NOTE FAXED PRESCRIPTION & CERTIFICATE OF MEDICAL NECESSITY FORM TO [facility] / FAX# [phone], ATTN: AINSLEY #[phone]. PER AINSLEY, ONCE APPROVED & COMPLETED, NEBULIZER WILL BE HOME DELIVERED.
--- NOTE | 2017-03-16 16:20 | NUR ---
EXPLAINED TO PT., PT. , AND PT. DAUGHTER ABOUT MD D/C ORDER, D/C INSTRUCTIONS AND TEACHING, MD FOLLOW-UP, MD PRESCRIPTION LIST EDUCATION, DISEASE MANAGEMENT TEACHING, PAIN MANAGEMENT TEACHING, DIET. VERBALIZED UNDERSTANDING.
--- NOTE | 2017-03-16 16:56 | NUR ---
D/C VIA WHEELCHAIR, ACCOMPANIED BY PT. DAUGHTER. AWAKE, ALERT, AND ORIENTED X4. SPEECH CLEAR. NO C/O PAIN. NO SOB, NOTED. IN STABLE CONDITION. INFORMED CHARGE NURSE MINISTERIO PENNINGTON
[2017-03-16] MEDS ORDERED: guaiFENesin 600 MG TABER PO SCH (21:00)
== END 2017-03-16 16:56 | disposition home or self-care (01) | DRG 205 ==
LOC: MED 15:57 → MTU 20:22
PROVIDERS: ADMIT Family Medicine; ATTEND Family Medicine
DX: M94.0 Chondrocostal junction syndrome [Tietze] (principal); J18.9 Pneumonia, unspecified organism; I42.9 Cardiomyopathy, unspecified; J44.0 Chronic obstructive pulmonary disease with (acute) lower respiratory infection; J44.1 Chronic obstructive pulmonary disease with (acute) exacerbation; I50.9 Heart failure, unspecified; K21.9 Gastro-esophageal reflux disease without esophagitis; I10 Essential (primary) hypertension; J20.9 Acute bronchitis, unspecified; K59.00 Constipation, unspecified; F41.0 Panic disorder [episodic paroxysmal anxiety]; E03.9 Hypothyroidism, unspecified; E66.3 Overweight; Z68.29 Body mass index [BMI] 29.0-29.9, adult; Z88.6 Allergy status to analgesic agent; Z88.8 Allergy status to other drugs, medicaments and biological substances; Z87.891 Personal history of nicotine dependence; Z79.82 Long term (current) use of aspirin; Z82.49 Family history of ischemic heart disease and other diseases of the circulatory system
CPT/HCPCS: 36415; 71010; 80048; 80053; 80305; 81001; 81003; 82150; 82553; 83036; 83690; 83735; 83880; 84100; 84439; 84443; 84484; 85025; 85379; 85610; 85730; 87070; 87081; 87205; 89220; 93005; 94640; 96365; 96366; 96367; 96375; 96376; 99285; C9113; J0696; J1650; J1885; J1940; J1956; J2270; J2405; J2543; J2920; J2930; J3475; J3490; J7030; J7060; J7613; J7620; J7626; J7644; Q0092

== ENCOUNTER 2017-05-01 20:36 | Emergency (ER) | payer OTHER ==
[~2017-05-01] VITALS: Ht 175.3 cm; Wt 88.5 kg
[~2017-05-01 20:36] MED LIST changes: -ACET-2869 PO; +ALDACTONE25 M1 PO; +ALDACTONE25 MG PO; +ALLI60 MG PO; +AMLODIPINE BESY1 CA3 PO; -ASPI81CT89 PO; +ASPIRIN81 M1 PO; +ATOXIMETIN-B1 CAP PO; +AZITHROMYCIN250 MG PO; +BD LACTINEX1.4 MG PO; -BEN10 PO; -BENA10TA16 PO; +BENAZEPRIL10 M1 PO; +BENTYL10 MG PO; +BUDESONIDE0.25 MG/2 NEB; -CLON2TAB PO; +CLONAZEPAM 2 MG; +COLACE100 MG PO; +DEXILANT60 MG PO; -DOCU-264 PO; +DULCOLAX PO; -FAMO20TA47 PO; +FAMOTIDINE 20 MG; +FISH OIL1 POW PO; -FURO-570 PO; +FUROSEMIDE 40 MG; +IPRATROPIUM BROM3 M1 IH; +KLONOPIN2 M1 PO; +KLONOPIN2 MG PO; +KLOR-CON 88 ME1 PO; -LACT1.4C PO; +LASIX40 M1 PO; +LEVAQUIN500 M1 PO; -LEVO500T22 PO; +LINZESS145 MCG PO; +LOTENSIN; +MOTRIN600 MG PO; -MULT1CAP28 PO; +MULTIVITAMIN1 SGL PO; +NORCO 325 MG-51 TAB PO; -PANT40EC28 PO; +PANTOPRAZOLE SO40 MG PO; +PEPCID AC20 MG PO; -POTA8TER12 PO; +PREDNISONE10 MG PO; +PULMICORT0.5 MG/2 M INH; +ROBITUSSIN/DEXT10 ML PO; -SPIR25TA PO; +SYMBICORT 10.10.2 M1 IH; -SYN.1 PO; +SYNTHROID0.1 M1 PO; +SYNTHROID0.1 MG PO; +THE MEDICINE S300 M1 PO; +TYLENOL #3 300/1 TAB PO; +VENTOLIN H0.09 MG/Ac IH; +[UNRECOGNIZED DRUG - OTHER]; +[UNRECOGNIZED DRUG - OTHER] PO
[2017-05-01 20:39] VITALS: BP 147/88
[2017-05-01] MEDS: MORPHINE SULFATE 2 MG/ML SYR IVP ONE ×2 (22:42→23:47)
[2017-05-01] MEDS: NACL 0.9% 1,000 ML IV ONE (22:42)
[2017-05-01] MEDS: ONDANSETRON 4 MG/2 ML VIAL IVP ONE (22:43)
[2017-05-01] MEDS: LEVOFLOXACIN 500 MG/D5W PREMIX 100 ML IV ONE (23:03)
[2017-05-02 01:21] VITALS: BP 130/80
== END 2017-05-02 01:21 | disposition home or self-care (01) ==
LOC: MED 20:36
DX: K52.9 Noninfective gastroenteritis and colitis, unspecified (principal); I10 Essential (primary) hypertension; I50.9 Heart failure, unspecified; K21.9 Gastro-esophageal reflux disease without esophagitis; E03.9 Hypothyroidism, unspecified; Z79.899 Other long term (current) drug therapy; Z88.5 Allergy status to narcotic agent; Z88.8 Allergy status to other drugs, medicaments and biological substances
CPT/HCPCS: 36415; 74176; 74177; 80053; 81001; 81025; 85025; 85610; 85730; 87086; 96361; 96365; 96375; 96376; 99285; J1956; J2270; J2405; J7030; Q9967

== ENCOUNTER 2018-12-20 15:14 | Outpatient (CLI) | payer OTHER ==
[~2018-12-20 15:14] MED LIST changes: +ALBU0.0912 IH; +ALBU3SOL83 IH; -ALDACTONE25 M1 PO; -ALDACTONE25 MG PO; -ALLI60 MG PO; +AMLO1CAP91 PO; -AMLODIPINE BESY1 CA3 PO; +ASPI-1718 PO; -ASPIRIN81 M1 PO; -ATOXIMETIN-B1 CAP PO; +AZIT250T11 PO; -AZITHROMYCIN250 MG PO; -BD LACTINEX1.4 MG PO; +BEN10 PO; -BENAZEPRIL10 M1 PO; -BENTYL10 MG PO; +BISA5TAB79 PO; +BUDE0.25 NEB; +BUDE10.2 IH; -BUDESONIDE0.25 MG/2 NEB; +CLON2TAB PO; -CLONAZEPAM 2 MG; -COLACE100 MG PO; -DEXILANT60 MG PO; +DEXL60EC PO; -DULCOLAX PO; -FAMOTIDINE 20 MG; -FISH OIL1 POW PO; -FUROSEMIDE 40 MG; +IBUP-2213 PO; -IPRATROPIUM BROM3 M1 IH; -KLONOPIN2 M1 PO; -KLONOPIN2 MG PO; -KLOR-CON 88 ME1 PO; -LASIX40 M1 PO; -LEVAQUIN500 M1 PO; +LINA145C PO; -LINZESS145 MCG PO; -LOTENSIN; -MOTRIN600 MG PO; +MULT1SGL58 PO; -MULTIVITAMIN1 SGL PO; -NORCO 325 MG-51 TAB PO; +OMEG300C PO; -PANTOPRAZOLE SO40 MG PO; -PEPCID AC20 MG PO; +PRED10TA5 PO; -PREDNISONE10 MG PO; -PULMICORT0.5 MG/2 M INH; +ROBDM PO; -ROBITUSSIN/DEXT10 ML PO; +SPIR25TA PO; -SYMBICORT 10.10.2 M1 IH; +SYN.1 PO; -SYNTHROID0.1 M1 PO; -SYNTHROID0.1 MG PO; -THE MEDICINE S300 M1 PO; -TYLENOL #3 300/1 TAB PO; -VENTOLIN H0.09 MG/Ac IH; -[UNRECOGNIZED DRUG - OTHER]; -[UNRECOGNIZED DRUG - OTHER] PO
== END 2018-12-20 20:18 | disposition home or self-care (01) ==
LOC: MRD 15:14
DX: R05 Cough (principal); M46.04 Spinal enthesopathy, thoracic region; M43.8X4 Other specified deforming dorsopathies, thoracic region
CPT/HCPCS: 71046

== ENCOUNTER 2018-12-24 17:30 | Emergency (ER) | payer OTHER ==
[~2018-12-24] VITALS: Ht 175.3 cm; Wt 87.6 kg
[2018-12-24 17:34] VITALS: BP 126/90
--- NOTE | 2018-12-24 17:44 | NUR ---
C/O BEING SICK X1 MONTH. PT REPORTS STARTED OUT FLU AND HAD FEVER FOR A COUPLE DAYS WITH CRUSTY EYES. SAW PCP AND RECIEVED ABX AND EYE DROPS FOR 10 DAYS. WENT BACK 10 DAYS LATER, RECIEVED TAMIFLU. PT REPORTS FEELING WORSE AND NOW HAS SHARP STABING LT EAR PAIN X1 DAY. PT REPORTS WEAKNESS, FATIGUE, PRODUCTIVE COUGH, AND POOR APPETITE. LUNGS CLEAR BILATERALLY. NO FEVER AT THIS TIME. VSS. PT AA0X4. BED IS DOWN, LOCKED, BED RAILX 1, ERMD TO SEE PT. MEDHX: CHF, GERD, HYPOTHYROIDISM, HTN, ANXIETY, CERVICAL DYSTONIA
--- NOTE | 2018-12-24 19:50 | NUR ---
Dr. Garcia evaluating patient at bedside.
[2018-12-24] MEDS ORDERED: ALBUTEROL 0.083% 2.5 MG/3 ML NEBU INH ONE (20:05)
[2018-12-24] MEDS ORDERED: NEOMYCIN/POLYMYXIN/HC OT SOL. 10 ML BTL OT ONE (20:05)
--- NOTE | 2018-12-24 20:16 | NUR ---
X-Ray at bedside.
--- NOTE | 2018-12-24 20:24 | NUR ---
SWABS COLLECTED AND SENT TO LAB
--- NOTE | 2018-12-24 20:28 | NUR ---
Respiratory Therapist at bedside for respiratory intervention.
--- NOTE | 2018-12-24 20:53 | NUR ---
PT C/O 05/09 PAIN, DR PARIKH NOTIFIED. WILL ADMINISTER TORADOL Addendum: 12/24/18 at 2108 by [email or web address] NOTE COMPLETED BY MARCELO BACA
[2018-12-24] MEDS ORDERED: KETOROLAC 60 MG/2 ML VIAL IM ONE (20:55)
[2018-12-24 21:04] LABS: RSV NEGATIVE (NEGATIVE)
--- NOTE | 2018-12-24 21:08 | NUR ---
REPORT GIVEN TO KENNA BACA
[2018-12-24 21:30] VITALS: BP 151/86
--- NOTE | 2018-12-24 21:30 | NUR ---
Patient discharged with v/s stable. Written and verbal after care instructions given and explained. Patient alert, oriented and verbalized understanding of instructions. Ambulatory with steady gait. All questions addressed prior to discharge. ID band removed. Patient advised to follow up with PMD. Rx of TRAMADOL, CORTIC, BACTRIM WAS given. Patient educated on indication of medication including possible reaction and side effects. Opportunity to ask questions provided and answered.
== END 2018-12-24 21:30 | disposition home or self-care (01) ==
LOC: MED 17:30
DX: H66.92 Otitis media, unspecified, left ear (principal); H60.92 Unspecified otitis externa, left ear; J06.9 Acute upper respiratory infection, unspecified; I11.0 Hypertensive heart disease with heart failure; I50.9 Heart failure, unspecified; K21.9 Gastro-esophageal reflux disease without esophagitis; E03.9 Hypothyroidism, unspecified; F41.9 Anxiety disorder, unspecified; Z79.82 Long term (current) use of aspirin; Z79.899 Other long term (current) drug therapy; Z88.6 Allergy status to analgesic agent; Z88.5 Allergy status to narcotic agent; Z88.8 Allergy status to other drugs, medicaments and biological substances
CPT/HCPCS: 71045; 87081; 87420; 87804; 94640; 96372; 99284; J1885; J7613

== ENCOUNTER 2019-05-20 16:03 | Inpatient (IN) | payer OTHER ==
[~2019-05-20] VITALS: Ht 175.3 cm; Wt 86.2 kg
[2019-05-20 16:13] VITALS: BP 112/74
[2019-05-20] MEDS ORDERED: ASPIRIN 81 MG TAB.CHEW PO ONE ×2 (16:40→20:45)
--- NOTE | 2019-05-20 17:07 | NUR ---
PT BIB family C/O chest pain ( sharp, pressure, achy) radiating to jaw and lt arm x yesterday. PT reports SOB, RR even and non-labored, O2 sat at 96% on room air. + N/V. No distress noted, VSS. ER MD to see pt. hx: htn, chf, cardiomyopathy, gurd. hypothyroidism. high cholestrol tx: dexilant, synthroid. bentyl , baby aspirin
[2019-05-20] MEDS ORDERED: KETOROLAC 30 MG/ML VIAL IVP ONE (17:25)
[2019-05-20 17:52] LABS: EOSINOPHILS # (AUTO) 0.1 K/uL (0-0.4); EOSINOPHILS % (AUTO) 1.9 % (0.0-4.0); HEMATOCRIT 41.4 % (36-48); HEMOGLOBIN 13.5 g/dL (12.0-16.0); LYMPHOCYTES # (AUTO) 1.4 K/uL (2.5-16.5); LYMPHOCYTES % (AUTO) 31.3 % (20.5-51.1); MEAN CORPUSCULAR HEMOGLOBIN 28 pg (27-31); MEAN CORPUSCULAR HGB CONC 33 g/dL (33-37); MEAN CORPUSCULAR VOLUME 86.6 fL (80-94); MONOCYTES # (AUTO) 0.3 K/uL (0.8-1.0); MONOCYTES % (AUTO) 7.6 % (1.7-9.3); NEUTROPHILS # (AUTO) 2.7 K/uL (1.8-7.7); NEUTROPHILS % (AUTO) 58.2 % (42.2-75.2); PLATELET COUNT (AUTO) 265 K/uL (140-450); RED BLOOD CELL COUNT(AUTO) 4.78 MIL/uL (4.20-5.40); RED CELL DISTRIBUTION WIDTH 13.8 % (11.6-13.7); WHITE BLOOD COUNT (AUTO) 4.6 K/uL (4.8-10.8)
[2019-05-20] MEDS ORDERED: MORPHINE SULFATE 4 MG/ML SYR IVP ONE (18:30)
[2019-05-20 18:55] LABS: ALBUMIN 3.9 g/dL (3.4-5.0); ANION GAP 12.1 (8-16); CARBON DIOXIDE 28.7 mmol/L (21-32); CREATININE 0.8 mg/dL (0.6-1.3); POTASSIUM 3.8 mmol/L (3.5-5.1); TOTAL BILIRUBIN 0.5 mg/dL (0.0-1.0)
[2019-05-20 19:01] LABS: APPEARANCE,URINE CLEAR (CLEAR); BILIRUBIN,URINE NEGATIVE (NEGATIVE); BLOOD, URINE NEGATIVE (NEGATIVE); COLOR,URINE YELLOW (YELLOW); LEUKOCYTE ESTERASE ,URINE NEGATIVE (NEGATIVE); NITRITE, URINE NEGATIVE (NEGATIVE); UGLUCOSE NEGATIVE (NEGATIVE)
--- NOTE | 2019-05-20 19:02 | NUR ---
PT O2 DROPPED TO 92-93%, PLACED ON 2L O2 VIA NASAL CANNULA, O2 SAT INCREASED TO 97%
--- NOTE | 2019-05-20 19:08 | NUR ---
GAVE REPORT TO CHARLOTTE BACA
--- NOTE | 2019-05-20 19:11 | NUR ---
REPORT RECEIVED FROM PHUONG BOCANEGRA. ASSUMED CARE AT THIS TIME. PT IN STABLE CONDITON.
--- NOTE | 2019-05-20 20:10 | NUR ---
PT AWAKE AND ALERT. SEATED UPRIGHT. VSS. AT THIS TIME. ALL NEEDS MET AT THIS TIME.
--- NOTE | 2019-05-20 20:41 | NUR ---
PT C/O INCREASED CHEST PAIN 7/10, SHARP AND PRESSURE-LIKE. ERMD NOTIFIED.
[2019-05-20] MEDS ORDERED: NITROGLYCERIN 0.4 MG TAB SL ONE (20:45)
[2019-05-20] MEDS ORDERED: ONDANSETRON 4 MG/2 ML VIAL IM/IVP PRN (20:55)
[2019-05-20] MEDS ORDERED: DICYCLOMINE HCL LIQUID 10 MG/5 ML UDC PO SCH (21:00)
--- NOTE | 2019-05-20 21:53 | NUR ---
Patient will be admitted to care of Dr. Meza. Admited to [facility]. Will go to room 119B. Belongings list completed. Report to PHUONG Quintana. Transfer of care at this time.
--- NOTE | 2019-05-20 22:00 | NUR ---
PT BROUGHT UP TO UNIT VIA W/C, PT AMBULATED INDEPENDENTLY TO BED B. PT IS AOX4 WITH SKIN INTACT. REPORT GIVEN BY CHARLOTTE AT BEDSIDE FOR CONTINUITY OF CARE.
[2019-05-20 22:15] LABS: PROTHROMBIN TIME 10.1 secs (10.8-13.4)
--- NOTE | 2019-05-20 22:20 | NUR ---
DR. DOWNEY, INTERVIEWING PT AT BEDSIDE.
[2019-05-20] MEDS ORDERED: LORazepam 2 MG/ML VIAL IVP PRN (22:30)
--- NOTE | 2019-05-20 22:30 | NUR ---
PT SITING UP IN LOW BED WITH SIDE RAILS UP X2. PT SAID PAIN IS TOLERABLE AT THIS TIME. SHE HAS A 24G IN LEFT HAND AND NORMAL SALINE HUNG AND IS RUNNING AT 60MLS/HR ORDERED. LUNGS CLEAR AND BOWEL SOUNDS PRESENT. PT GIVEN ORDERED HEPARIN AT THIS TIME. MEDICATION RECONCILIATION DONE AT BESIDE. ALL REQUESTED NEEDS ATTENDED BY STAFF.
[2019-05-20] MEDS ORDERED: SIMV20TA1 PO (22:37)
[2019-05-20] MEDS ORDERED: VALS320T2 PO (22:37)
[2019-05-20] MEDS ORDERED: ESCI5TAB PO (22:37)
[2019-05-20] MEDS ORDERED: LORazepam 2 MG/ML VIAL IVP SCH (22:50)
[2019-05-20] MEDS: ALBUTEROL SULFATE/IPRATROPIU 3 ML SOL IH PRN (23:09)
[2019-05-20] MEDS: NACL 0.9% 1,000 ML IV SCH (23:25)
[2019-05-20] MEDS: SIMVASTATIN 20 MG TAB PO SCH (23:26)
[2019-05-20 23:38] LABS: BARBITURATE, URINE NEG. ng/ml (NEG <=200); BENZODIAZEPINE, URINE NEG. ng/mL (NEG <=200); CANNABINOID, URINE NEG. ng/mL (NEG <=50); COCAINE, URINE NEG. ng/mL (NEG <=300); OPIATE, URINE NEG. ng/mL (NEG <=2000); PHENCYCLIDINE SCREEN,URINE NEG. ng/mL (NEG <=25)
[2019-05-20 23:52] LABS: FREE T4 (FREE THYROXINE) 1.11 ng/dL (0.76-1.46); MAGNESIUM 2.1 mg/dL (1.8-2.4); PHOSPHORUS 4.1 mg/dL (2.5-4.9); THYROID STIMULATING HORMONE 2.32 uIU/mL (0.34-3.74)
[2019-05-20] MEDS: MORPHINE SULFATE 2 MG/ML SYR IVP PRN (23:53)
[2019-05-21] VITALS: BP 98/60
--- NOTE | 2019-05-21 | NUR ---
PT IN BED WITH C/O OF SEVERE PAIN AND ANXIETY, PT GIVEN ATIVAN IVP ORDERED WELL MORPHINE IVP ORDERED. WILL CONTINUE TO MONITOR PT FOR CHEST PAIN WELL EFFECT OF PRN FOR ANXIETY. V/S FOLLOWS T 97.6 P 73 R 20 B/P 98/60 02 98% WITH 2 LITERS VIA N/C. PT ON 2 LITERS N/C FOR COMFORT. BED LOW SIDE RAILS UP AND CALL TEJADA IN REACH.
[2019-05-21 04:00] VITALS: BP 97/60
--- NOTE | 2019-05-21 04:00 | NUR ---
PT IN BED RESTING BUT AROUSABLE TO NAME 2 LITERS N/C 02 IS 97% T 97.1 P 57 R 18 B/P 97/60. ALL REQUESTED NEEDS ATTENDED BY STAFF. AND CALL TEJADA IN REACH.
--- NOTE | 2019-05-21 06:00 | NUR ---
PT GIVEN ORDERED SYNTHROID AND PROTONIX WELL PRN IVP MORPHINE FOR C/O SEVERE CHEST PAIN. BED LOW SIDE RAILS UP AND CALL TEJADA IN REACH.
[2019-05-21] MEDS: PANTOPRAZOLE 40 MG TABEC PO SCH (06:18)
[2019-05-21] MEDS: LEVOTHYROXINE 0.1 MG TAB PO SCH (06:19)
[2019-05-21] MEDS: MORPHINE SULFATE 2 MG/ML SYR IVP PRN (06:22)
[2019-05-21 06:24] LABS: EOSINOPHILS # (AUTO) 0.1 K/uL (0-0.4); EOSINOPHILS % (AUTO) 2.4 % (0.0-4.0); HEMATOCRIT 37.2 % (36-48); HEMOGLOBIN 12.1 g/dL (12.0-16.0); LYMPHOCYTES # (AUTO) 2.3 K/uL (2.5-16.5); LYMPHOCYTES % (AUTO) 49.8 % (20.5-51.1); MEAN CORPUSCULAR HEMOGLOBIN 28 pg (27-31); MEAN CORPUSCULAR HGB CONC 33 g/dL (33-37); MEAN CORPUSCULAR VOLUME 86.6 fL (80-94); MONOCYTES # (AUTO) 0.4 K/uL (0.8-1.0); MONOCYTES % (AUTO) 9.1 % (1.7-9.3); NEUTROPHILS # (AUTO) 1.7 K/uL (1.8-7.7); NEUTROPHILS % (AUTO) 37.7 % (42.2-75.2); PLATELET COUNT (AUTO) 232 K/uL (140-450); RED CELL DISTRIBUTION WIDTH 13.6 % (11.6-13.7); WHITE BLOOD COUNT (AUTO) 4.6 K/uL (4.8-10.8)
[2019-05-21 06:47] LABS: ANION GAP 10.1 (8-16); CARBON DIOXIDE 31.3 mmol/L (21-32); CREATININE 0.9 mg/dL (0.6-1.3); POTASSIUM 4.4 mmol/L (3.5-5.1)
[2019-05-21] MEDS: ALBUTEROL SULFATE/IPRATROPIU 3 ML SOL IH PRN ×2 (07:06→13:25)
[2019-05-21 07:08] LABS: CHOL/HDL RATIO 3.2 (1-4.5)
--- NOTE | 2019-05-21 07:22 | NUR ---
RECEIVED BEDSIDE REPORT FROM THREADING MACHINE TENDER NURSE FOR CONTINUITY OF CARE. PATIENT AWAKE AND RESTING ON BED AT THIS TIME. PATIENT IS AAOX4. PATIENT DENIED PAIN, SOB AND DIZZINESS. RESPIRATION EVEN AND UNLABORED ON 2LPM VIA NC. NO SIGNS OF DISTRESS NOTED. IV ON L HAND 24G, CLEAN AND INTACT, INFUSING PER MD ORDER. SKIN INTACT AND CLEAN. PATIENT IS CONTINENT AND ABLE TO AMBULATE WITH STANDBY ASSIST. DISCUSSED PLAN OF CARE WITH PATIENT AND PATIENT VERBALIZED UNDERSTANDING. TELE MONITOR ATTACHED. SAFETY MEASURES IN PLACE. BED IN LOW POSITION AND CALL LIGHT WITHIN REACH. INSTRUCTED PATIENT TO USE THE CALL LIGHT FOR ANY ASSISTANCE AND PATIENT WAS AWARE.
[2019-05-21 08:00] VITALS: BP 102/66
--- NOTE | 2019-05-21 08:26 | NUR ---
PATIENT HAS BEEN SCREENED AND CATEGORIZED MODERATE NUTRITION RISK. PATIENT WILL BE SEEN WITHIN 3-5 DAYS OF ADMISSION. 05/23/19 05/25/[address]
[2019-05-21] MEDS: VALSARTAN 80 MG TAB PO SCH (08:53)
[2019-05-21] MEDS: clonazePAM 0.5 MG TAB PO SCH ×2 (08:54→20:40)
[2019-05-21] MEDS: ESCITALOPRAM 20 MG TAB PO SCH (08:55)
[2019-05-21] MEDS: METOPROLOL 25 MG TAB PO SCH ×2 (08:56→21:00)
[2019-05-21] MEDS: ASPIRIN 81 MG TAB.CHEW PO SCH (08:56)
[2019-05-21] MEDS: MULTIVITAMIN 1 TAB PO SCH (08:56)
[2019-05-21] MEDS ORDERED: BENAZEPRIL 20 MG TAB PO SCH (09:00)
[2019-05-21] MEDS ORDERED: predniSONE 10 MG TAB PO SCH (09:00)
[2019-05-21] MEDS ORDERED: amLODIPine 5 MG TAB PO SCH (09:00)
[2019-05-21] MEDS: DICYCLOMINE HCL LIQUID 10 MG/5 ML UDC PO SCH ×2 (09:07→21:31)
--- NOTE | 2019-05-21 09:07 | NUR ---
CHECKED BP PRIOR TO MED ADMINISTRATION, BP 92/60, PULSE 77, SPO2 96% ON 2LPM. HOLD ALL BP MEDS DUE TO LOW BP. ADMINISTERED SCHEDULED MEDS PER MD ORDER, MEDS EDUCATION PROVIDED TO PATIENT AND PATIENT VERBALIZED UNDERSTANDING. PATIENT TOLERATED MEDS WELL. PATIENT IS RESTING ON BED AT THIS TIME. DENIED PAIN, SOB AND DIZZINESS. TELE MONITOR ATTACHED. NO SIGNS OF DISTRESS NOTED. SAFETY MEASURES IN PLACE. BED IN LOW POSITION AND CALL LIGHT WITHIN REACH. INSTRUCTED PATIENT TO USE THE CALL LIGHT FOR ANY ASSISTANCE AND PATIENT WAS AWARE.
--- NOTE | 2019-05-21 11:32 | NUR ---
PATIENT IS RESTING ON BED AT THIS TIME. AROUSABLE TO VOICE. RESPIRATION EVEN AND UNLABORED ON 2LPM VIA NC. NO SIGNS OF DISTRESS NOTED. TELE MONITOR ATTACHED. SAFETY MEASURES IN PLACE. BED IN LOW POSITION AND CALL LIGHT WITHIN REACH.
--- NOTE | 2019-05-21 11:57 | NUR ---
DR GREGORIO IS TALKING AND ASSESSING PATIENT AT BEDSIDE. NO SIGNS OF DISTRESS NOTED. SAFETY MEASURES IN PLACE. TELE MONITOR ATTACHED.
[2019-05-21 12:00] VITALS: BP 95/56
[2019-05-21] MEDS: KETOROLAC 15 MG/ML VIAL IVP PRN ×2 (13:02→20:33)
[2019-05-21] MEDS: NACL 0.9% 1,000 ML IV SCH (13:03)
--- NOTE | 2019-05-21 13:03 | NUR ---
PATIENT COMPLAINED SHE HAS 6/10 PAIN AROUND HER FRONT CHEST, SHE FEELS HEAVINESS, TIGHTNESS AND ACHING. PATIENT IS RESTLESS AND IRRITABLE. ADMINISTERED PRN PAIN MED PER MD ORDER, MED EDUCATION PROVIDED TO PATIENT AND PATIENT VERBALIZED UNDERSTANDING. PATIENT IS AWAKE AND WATCHING TV ON BED AT THIS TIME. SAFETY MEASURES IN PLACE. BED IN LOW POSITION AND CALL LIGHT WITHIN REACH. INSTRUCTED PATIENT TO USE THE CALL LIGHT FOR ANY ASSISTANCE AND PATIENT WAS AWARE.
--- NOTE | 2019-05-21 13:44 | NUR ---
ASSISTED PATIENT TO USE THE BATHROOM AND WENT BACK ON BED. NO SIGNS OF DISTRESS NOTED. SAFETY MEASURES IN PLACE. BED IN LOW POSITION AND CALL LIGHT WITHIN REACH. INSTRUCTED PATIENT TO USE THE CALL LIGHT FOR ANY ASSISTANCE AND PATIENT WAS AWARE.
--- NOTE | 2019-05-21 15:18 | NUR ---
PATIENT IS AWAKE AND WATCHING TV ON BED AT THIS TIME. DENIED PAIN, SOB AND DIZZINESS. NO SIGNS OF DISTRESS NOTED. SAFETY MEASURES IN PLACE. BED IN LOW POSITION AND CALL LIGHT WITHIN REACH. INSTRUCTED PATIENT TO USE THE CALL LIGHT FOR ANY ASSISTANCE AND PATIENT WAS AWARE.
[2019-05-21 16:00] VITALS: BP 92/53
--- NOTE | 2019-05-21 17:19 | NUR ---
PATIENT IS RESTING ON BED AT THIS TIME. AROUSABLE TO VOICE. EVEN AND UNLABORED CHEST RISES ON 2LPM VIA NC NOTED. NO SIGNS OF DISTRESS NOTED. SAFETY MEASURES IN PLACE. BED IN LOW POSITION AND CALL LIGHT WITHIN REACH. INSTRUCTED PATIENT TO USE THE CALL LIGHT FOR ANY ASSISTANCE AND PATIENT WAS AWARE.
--- NOTE | 2019-05-21 18:04 | NUR ---
PATIENT IS HAVING DINNER AND TALKING TO VISITORS AT BEDSIDE. NO SIGNS OF DISTRESS NOTED. SAFETY MEASURES IN PLACE. BED IN LOW POSITION AND CALL LIGHT WITHIN REACH. INSTRUCTED PATIENT TO USE THE CALL LIGHT FOR ANY ASSISTANCE AND PATIENT WAS AWARE.
--- NOTE | 2019-05-21 19:32 | NUR ---
ENDORSED PATIENT AT BEDSIDE TO LEAD FABRICATOR NURSE. PATIENT AWAKE AND TALKING TO FAMILY AT BEDSIDE. NO SIGNS OF DISTRESS NOTED. PATIENT IS IN STABLE CONDITION. SAFETY MEASURES IN PLACE.
--- NOTE | 2019-05-21 19:33 | NUR ---
RECEIVED BEDSIDE REPORT FROM AM SHIFT PHUONG MORRISON. FAMILY MEMBERS AT BEDSIDE. PT SITTING ON BED AWAKE. PT IS AOX4. NO SIGNS OF RESPIRATORY DISTRESS OR SOB NOTED. PT ON 2L O2 VIA NASAL CANNULA. IV ACCESS ON LEFT FOREARM, PATENT, INTACT AND ASYMPTOMATIC. PT IS AMBULATORY. BED IN LOW POSITION. WILL CONTINUE TO MONITOR.
[2019-05-21 20:00] VITALS: BP 101/71
[2019-05-21] MEDS: SIMVASTATIN 20 MG TAB PO SCH (20:39)
--- NOTE | 2019-05-21 22:00 | NUR ---
ROUNDS DONE. PT RESTING COMFORTABLY AFTER GIVEN PAIN MEDICATION. VISIBLE CHEST RISE AND FALL NOTED.
--- NOTE | 2019-05-22 | NUR ---
VITAL SIGNS DONE. PT SLEEPING COMFORTABLY IN BED. VISIBLE CHEST RISE AND FALL NOTED. WILL CONTINUE TO MONITOR.
--- NOTE | 2019-05-22 02:10 | NUR ---
ROUNDS MADE. PT SLEEPING IN BED COMFORTABLY. VISIBLE CHEST RISE AND FALL NOTED. NO SOB OR DISTRESS NOTED. WILL CONTINUE TO MONITOR.
--- NOTE | 2019-05-22 04:00 | NUR ---
ROUNDS MADE. PT SLEEPING IN BED COMFORTABLY. VISIBLE CHEST RISE AND FALL NOTED. WILL CONTINUE TO MONITOR.
[2019-05-22 06:14] LABS: BASOPHILS % (AUTO) 0.9 % (0.0-2.0); EOSINOPHILS # (AUTO) 0.2 K/uL (0-0.4); EOSINOPHILS % (AUTO) 3.4 % (0.0-4.0); HEMATOCRIT 36.6 % (36-48); HEMOGLOBIN 11.9 g/dL (12.0-16.0); LYMPHOCYTES # (AUTO) 1.9 K/uL (2.5-16.5); MEAN CORPUSCULAR HEMOGLOBIN 28 pg (27-31); MEAN CORPUSCULAR HGB CONC 33 g/dL (33-37); MEAN CORPUSCULAR VOLUME 87.3 fL (80-94); MONOCYTES # (AUTO) 0.4 K/uL (0.8-1.0); MONOCYTES % (AUTO) 7.6 % (1.7-9.3); NEUTROPHILS # (AUTO) 2.4 K/uL (1.8-7.7); NEUTROPHILS % (AUTO) 49.1 % (42.2-75.2); PLATELET COUNT (AUTO) 235 K/uL (140-450); RED CELL DISTRIBUTION WIDTH 13.6 % (11.6-13.7); WHITE BLOOD COUNT (AUTO) 4.9 K/uL (4.8-10.8)
[2019-05-22] MEDS: PANTOPRAZOLE 40 MG TABEC PO SCH (06:17)
[2019-05-22] MEDS: LEVOTHYROXINE 0.1 MG TAB PO SCH (06:17)
[2019-05-22 06:18] LABS: ANION GAP 11.4 (8-16); CARBON DIOXIDE 30.1 mmol/L (21-32); CREATININE 0.7 mg/dL (0.6-1.3); POTASSIUM 4.5 mmol/L (3.5-5.1)
[2019-05-22] MEDS: NACL 0.9% 1,000 ML IV SCH (06:21)
[2019-05-22] MEDS: KETOROLAC 15 MG/ML VIAL IVP PRN ×2 (06:33→10:24)
[2019-05-22 06:50] LABS: PHOSPHORUS 4.4 mg/dL (2.5-4.9)
--- NOTE | 2019-05-22 06:56 | NUR ---
PT IN STABLE CONDITION. WILL ENDORSE TO AM SHIFT NURSE FOR CONTINUITY OF CARE
--- NOTE | 2019-05-22 07:10 | NUR ---
RECEIVED BEDSIDE REPORT FROM WINDOWS SERVER ENGINEER NURSE FOR CONTINUITY OF CARE. PATIENT IS AWAKE AND RESTING ON BED AT THIS TIME. PATIENT IS AAOX4. RESPIRATION EVEN AND UNLABORED ON RA. DENIED PAIN, SOB, NAUSEA, AND VOMITING. NO SIGNS OF DISTRESS NOTED. IV CLEAN AND PATENT, INFUSING PER MD ORDER. PATIENT IS CONTINENT AND ABLE TO AMBULATE WITH STEADY GAIT. SKIN CLEAN AND DRY. DISCUSSED PLAN OF CARE WITH PATIENT, PATIENT VERBALIZED UNDERSTANDING. SAFETY MEASURES IN PLACE. BED IN LOW POSITION AND CALL LIGHT WITHIN REACH. INSTRUCTED PATIENT TO USE THE CALL LIGHT FOR ANY ASSISTANCE AND PATIENT WAS AWARE.
[2019-05-22 08:00] VITALS: BP 107/66
--- NOTE | 2019-05-22 08:05 | NUR ---
INFORMED PATIENT THAT SHE WILL BE DISCHARGE FROM THE HOSPITAL TODAY, AND PATIENT WAS AWARE. PER PATIENT, HER FAMILY WILL BE ABLE TO PICK HER UP AFTER LUNCH. PATIENT IS RESTING ON BED AT THIS TIME. NO SIGNS OF DISTRESS NOTED. SAFETY MEASURES IN PLACE.
[2019-05-22] MEDS: DICYCLOMINE HCL LIQUID 10 MG/5 ML UDC PO SCH (09:00)
[2019-05-22] MEDS: VALSARTAN 80 MG TAB PO SCH (09:00)
[2019-05-22] MEDS: METOPROLOL 25 MG TAB PO SCH (09:00)
[2019-05-22] MEDS: ASPIRIN 81 MG TAB.CHEW PO SCH (09:30)
[2019-05-22] MEDS: MULTIVITAMIN 1 TAB PO SCH (09:30)
[2019-05-22] MEDS: ESCITALOPRAM 20 MG TAB PO SCH (09:30)
[2019-05-22] MEDS: clonazePAM 0.5 MG TAB PO SCH (09:34)
--- NOTE | 2019-05-22 09:34 | NUR ---
CHECKED BP PRIOR TO MEDS ADMINISTRATION, BP 103/73 PULSE 74, HOLD ALL AM BP MEDS AND PATIENT AWARE DUE TO LOW BP. PATIENT REFUSED HEPARIN AND BENTYL, STATED "I DON'T WANT THE HEPARIN SINCE I AM GOING HOME TODAY. I WALK A LOT AT HOME. I ALSO DON'T WANT TO TAKE THE BENTYL LIQUID, I DON'T LIKE THE TASTE OF IT." OFFERED APPLE/ORANGE JUICE TO TAKE WITH BENTYL AND PATIENT INSISTED NOT WANTING IT. MEDS EDUCATION PROVIDED TO PATIENT ON MEDS, PATIENT VERBALIZED UNDERSTANDING, BUT STILL NOT WANT TO TAKE THEM. RETURNED ALL REFUSAL MEDS TO [facility]. PATIENT AWAKE AND WATCHING TV ON BED AT THIS TIME. NO SIGNS OF DISTRESS NOTED. SAFETY MEASURES IN PLACE. BED IN LOW POSITION AND CALL LIGHT WITHIN REACH. INSTRUCTED PATIENT TO USE THE CALL LIGHT FOR ANY ASSISTANCE AND PATIENT WAS AWARE.
--- NOTE | 2019-05-22 10:24 | NUR ---
PATIENT COMPLAINED SHE HAS 6/10 PAIN NECK PAIN, SHE FEELS HEAVINESS, TIGHTNESS AND ACHING. PATIENT IS RESTLESS AND IRRITABLE. ADMINISTERED PRN PAIN MED PER MD ORDER, MED EDUCATION PROVIDED TO PATIENT AND PATIENT VERBALIZED UNDERSTANDING. PATIENT IS AWAKE AND TALKING TO KALA BY BEDSIDE AT THIS TIME. AWAITING FOR DR WRIGHT TO COMPLETE PRESCRIPTION FOR DISCHARGE. SAFETY MEASURES IN PLACE. BED IN LOW POSITION AND CALL LIGHT WITHIN REACH. INSTRUCTED PATIENT TO USE THE CALL LIGHT FOR ANY ASSISTANCE AND PATIENT WAS AWARE.
[2019-05-22] MEDS ORDERED: BENZONATATE 100 MG CAPLF PO PRN (10:25)
[2019-05-22] MEDS ORDERED: BENZ-196 PO (10:27)
[2019-05-22] MEDS ORDERED: PANT40EC28 PO (10:27)
[2019-05-22] MEDS ORDERED: ALBU0.0912 IH (10:29)
--- NOTE | 2019-05-22 11:18 | NUR ---
ADMINISTERED TESSALON FOR PATIENT'S COUGH, MED EDUCATION PROVIDED TO PATIENT AND PATIENT VERBALIZED UNDERSTANDING. PATIENT IS CHANGING INTO HER OWN CLOTHES AT THIS TIME. NO SIGNS OF DISTRESS NOTED. DAUGHTER KALA BY BEDSIDE.
--- NOTE | 2019-05-22 11:30 | NUR ---
PATIENT IS IN THE BATHROOM AT THIS TIME. NO SIGNS OF DISTRESS NOTED. SAFETY MEASURES IN PLACE.
--- NOTE | 2019-05-22 11:40 | NUR ---
DISCHARGE EDUCATION PROVIDED TO PATIENT AT BEDSIDE. EDUCATED PATIENT ON MD FOLLOW UP, SEEK MEDICAL HELP IN CASE OF MEDICAL EMERGENCY, DISEASE MANAGEMENT, MEDICATIONS REGIMEN, SIDE EFFECTS, AND DIET. ANSWERED ALL PATIENT'S QUESTIONS AND PATIENT VERBALIZED UNDERSTANDING. PATIENT WAS AWARE THAT PRESCRIPTION SENT TO HER PREFERRED PHARMACY AT [place]. REMOVED ALL ARM BANDS AND DC IV, IV CANNULA INTACT AND NO BLEEDING AT IV SITE. PATIENT CHECKED ALL CABINETS AND TOOK ALL HER BELONGINGS. PRINTED DISCHARGE PACKET PROVIDED TO PATIENT. PER PATIENT, SHE HAS RECEIVED HER FLU VACCINE THIS SEASON AND SHE REFUSED PNA VACCINE. VACCINATION EDUCATION PROVIDED AND PATIENT SAID "NO, I CAN ASK MY FAMILY DR IF I CHANGE MY MIND." STUDENT NURSE WHEEL CHAIR PATIENT TO THE FRONT LOBBY. PATIENT IS GOING TO DISCHARGE AT THIS TIME ACCOMPANY BY DAUGHTER KALA IN STABLE CONDITION.
== END 2019-05-22 11:40 | disposition home or self-care (01) | DRG 392 ==
LOC: MED 16:03 → MTU 20:54
PROVIDERS: ADMIT General Practice; ATTEND General Practice
DX: K21.9 Gastro-esophageal reflux disease without esophagitis (principal); I42.9 Cardiomyopathy, unspecified; F41.1 Generalized anxiety disorder; I11.0 Hypertensive heart disease with heart failure; I50.9 Heart failure, unspecified; E03.9 Hypothyroidism, unspecified; J44.9 Chronic obstructive pulmonary disease, unspecified; E78.5 Hyperlipidemia, unspecified; Z88.6 Allergy status to analgesic agent; Z88.8 Allergy status to other drugs, medicaments and biological substances; Z87.891 Personal history of nicotine dependence; Z82.49 Family history of ischemic heart disease and other diseases of the circulatory system; Z90.49 Acquired absence of other specified parts of digestive tract
CPT/HCPCS: 36415; 71045; 71046; 80048; 80053; 80305; 81003; 82550; 83036; 83605; 83690; 83735; 83880; 84100; 84439; 84443; 84484; 85025; 85379; 85610; 85730; 87081; 93005; 94640; 96374; 96375; 99285; J1644; J1885; J2060; J2270; J7030; J7620; Q0092

== ENCOUNTER 2023-12-26 17:35 | Emergency (ER) | payer OTHER ==
[~2023-12-26] VITALS: Ht 175.3 cm; Wt 88.5 kg
[~2023-12-26 17:35] MED LIST changes: -ALBU3SOL83 IH; -AMLO1CAP91 PO; -ASPI-1718 PO; +ASPI-1822 PO; -AZIT250T11 PO; +BENZ-196 PO; -BUDE0.25 NEB; -BUDE10.2 IH; +CLON-575 PO; -CLON2TAB PO; +ESCI5TAB PO; -LINA145C PO; +PANT40EC56 PO; -PRED10TA5 PO; -ROBDM PO; +SIMV-372 PO; -SPIR25TA PO; +VALS320T2 PO
[2023-12-26 17:57] VITALS: BP 123/90; PULSE 93; RESP 18; TEMP 97.6; O2SAT 94
[2023-12-26 18:16] VITALS: O2SAT 94
[2023-12-26 18:51] LABS: APPEARANCE,URINE CLEAR (CLEAR); BILIRUBIN,URINE NEGATIVE (NEGATIVE); BLOOD, URINE TRACE-I (NEGATIVE); COLOR,URINE YELLOW (YELLOW); LEUKOCYTE ESTERASE ,URINE NEGATIVE (NEGATIVE); NITRITE, URINE NEGATIVE (NEGATIVE); PROTEIN,URINE NEGATIVE (NEGATIVE); UGLUCOSE NEGATIVE (NEGATIVE); UROBILINOGEN,URINE 0.2 EU/dL (0.2 - 1)
[2023-12-26] MEDS: KETOROLAC 30 MG/ML VIAL IVP ONE (19:00)
[2023-12-26 19:08] LABS: BASOPHILS % (AUTO) 0.8 % (0.0-2.0); EOSINOPHILS # (AUTO) 0.1 K/uL (0-0.4); EOSINOPHILS % (AUTO) 0.9 % (0.0-4.0); HEMATOCRIT 42.4 % (36-48); HEMOGLOBIN 14.3 g/dL (12.0-16.0); LYMPHOCYTES # (AUTO) 1.5 K/uL (2.5-16.5); LYMPHOCYTES % (AUTO) 23.6 % (20.5-51.1); MEAN CORPUSCULAR HEMOGLOBIN 29 pg (27-31); MEAN CORPUSCULAR HGB CONC 34 g/dL (33-37); MEAN CORPUSCULAR VOLUME 85.7 fL (80-94); MONOCYTES # (AUTO) 0.6 K/uL (0.8-1.0); MONOCYTES % (AUTO) 9.1 % (1.7-9.3); NEUTROPHILS # (AUTO) 4.1 K/uL (1.8-7.7); NEUTROPHILS % (AUTO) 65.6 % (42.2-75.2); PLATELET COUNT (AUTO) 325 K/uL (140-450); RED BLOOD CELL COUNT(AUTO) 4.94 MIL/uL (4.20-5.40); RED CELL DISTRIBUTION WIDTH 13.5 % (11.6-13.7); WHITE BLOOD COUNT (AUTO) 6.3 K/uL (4.8-10.8)
[2023-12-26 19:24] LABS: ANION GAP 10.1 (8-16); CALCIUM 8.8 mg/dL (8.5-10.1); CARBON DIOXIDE 29.7 mmol/L (21-32); CREATININE 0.9 mg/dL (0.6-1.3); POTASSIUM 3.8 mmol/L (3.5-5.1)
[2023-12-26 19:34] LABS: LACTIC ACID 2.6 mmol/L (0.4-2.0)
[2023-12-26] MEDS: MORPHINE SULFATE 4 MG/ML SYR IVP ONE ×2 (20:01→23:22)
[2023-12-26] MEDS ORDERED: MORPHINE SULFATE 4 MG/ML SYR ONE (23:15)
[2023-12-26] MEDS ORDERED: NAPR-337 PO (23:38)
[2023-12-26 23:44] VITALS: BP 122/90; PULSE 86; RESP 18; TEMP 98.2; O2SAT 94
[2023-12-27 06:19] LABS: BLOOD GAS PCO2 37.9 mmHg (35-45); BLOOD GAS PH 7.409 (7.35-7.45); BLOOD GAS PO2 110.8 mmHg (75-100)
[2023-12-27 06:20] LABS: BLOOD GAS BASE EXCESS -0.9 mmol/L (-2.0-2.0); BLOOD GAS HCO3 23.4 mmol/L (22-26)
[2023-12-27 06:21] LABS: BLOOD GAS O2 SAT% 98.2 % (92.0-98.5)
== END 2023-12-26 23:44 | disposition home or self-care (01) ==
LOC: MED 17:35
DX: R09.1 Pleurisy (principal); I11.0 Hypertensive heart disease with heart failure; E03.9 Hypothyroidism, unspecified; K21.9 Gastro-esophageal reflux disease without esophagitis; Z88.8 Allergy status to other drugs, medicaments and biological substances; Z88.5 Allergy status to narcotic agent; Z79.899 Other long term (current) drug therapy
CPT/HCPCS: 36415; 71045; 80048; 81003; 83605; 84484; 85025; 85379; 87040; 96374; 96375; 96376; 99285; J1885; J2270

== ENCOUNTER 2023-12-28 20:16 | Emergency (ER) | payer OTHER ==
[~2023-12-28] VITALS: Ht 175.3 cm; Wt 88.5 kg
[~2023-12-28 20:16] MED LIST changes: +NAPR-337 PO
[2023-12-28 20:31] VITALS: BP 142/90; PULSE 70; RESP 16; TEMP 97.4; O2SAT 98
[2023-12-28] MEDS ORDERED: MORPHINE SULFATE 4 MG/ML SYR ONE (22:52)
[2023-12-28] MEDS: MORPHINE SULFATE 4 MG/ML SYR IM ONE (22:56)
[2023-12-28] MEDS ORDERED: ACET-8905 PO (23:23)
[2023-12-28] MEDS ORDERED: IBUP-2213 PO (23:24)
[2023-12-28 23:31] VITALS: BP 134/90; PULSE 70; RESP 16; TEMP 97.4; O2SAT 98
== END 2023-12-28 23:31 | disposition home or self-care (01) ==
LOC: MED 20:16
DX: M79.662 Pain in left lower leg (principal); R22.42 Localized swelling, mass and lump, left lower limb; E03.9 Hypothyroidism, unspecified; I11.0 Hypertensive heart disease with heart failure; K21.9 Gastro-esophageal reflux disease without esophagitis; Z88.5 Allergy status to narcotic agent; Z88.8 Allergy status to other drugs, medicaments and biological substances; Z79.899 Other long term (current) drug therapy; Z79.4 Long term (current) use of insulin; Z90.49 Acquired absence of other specified parts of digestive tract; Z98.890 Other specified postprocedural states
CPT/HCPCS: 93971; 96372; 99285; J2270